=== PATIENT | male | born 1940 | race Caucasian/White ===

== ENCOUNTER 2016-09-27 19:44 | Emergency (ER) | payer MEDICARE ==
[2016-09-27 21:03] LABS: Basophils # (A) 0.1 k/uL (0-0.2); Basophils % (A) 1 %; CH 29.7; CHCM 35.3; Eosinophils # (A) 0.6 k/uL (0-0.7); Eosinophils % (A) 11 %; HDW 3.04; HGB 13.3 gm/dL (13.0-17.5); Luc # (Auto) 0.19; Luc % (Auto) 3; Lymphocytes # (A) 0.9 k/uL (1.0-4.8); Lymphocytes % (A) 16 %; MCH 29.7 pg (25.0-35.0); MCHC 35.1 g/dL (31.0-37.0); MCV 84.7 fL (80.0-100.0); Mean Platelet Volume 6.5; Monocytes # (A) 0.5 k/uL (0-1.0); Monocytes % (A) 8 %; Neutrophils # (A) 3.4 k/uL (1.3-7.7); Neutrophils % (A) 61 %; RBC 4.48 m/uL (4.30-5.90); RDW 12.7 % (11.5-15.5); WBC 5.6 k/uL (3.8-10.6); WBC (Perox) 5.49
[2016-09-27] MEDS ORDERED: NAFCILLIN 2 GM in SODIUM CHLORIDE 0.9% 100 ML IVPB STA (21:04)
--- NOTE | 2016-09-27 21:09 | ED ---
Extremity Problem HPI - General Chief complaint: Extremity Problem,Nontraumatic Stated complaint: leg swelling Time Seen by Provider: 09/27/16 20:31 Source: patient Mode of arrival: ambulatory Limitations: no limitations - History of Present Illness Initial comments: This patient is a 76-year-old man who presents to be evaluated for some increasing swelling and redness to both of his legs. The patient states that he believes it may be related to scratching his legs. This is been gradually increasing over nearly one week. The patient is not having pain to the extremities and he has not noted any systemic symptoms. He denies fever or chills, dyspnea, diaphoresis, lightheadedness or syncope. MD Complaint: extremity swelling Onset/Timin -: week(s) Location: bilateral lower extremity History of Same: No Consistency: constant Improves with: nothing Worsens with: nothing - Related Data Previous Rx's Medication Instructions Recorded Cephalexin [Keflex] 500 mg PO Q6HR #28 cap 09/27/16 Sulfamethox-Tmp 800-160Mg [Bactrim 2 each PO Q12HR #28 tab 09/27/16 Ds] Allergies Allergy/AdvReac Type Severity Reaction Status Date / Time No Known Allergies Allergy Verified 09/27/16 20:46 Review of Systems ROS Statement: Those systems with pertinent positive or pertinent negative responses have been documented in the HPI. ROS Other: All systems not noted in ROS Statement are negative. Constitutional: Denies: fever, chills, weakness Respiratory: Denies: cough, dyspnea Cardiovascular: Reports: as per HPI, edema. Denies: chest pain, palpitations, orthopnea, syncope Gastrointestinal: Denies: abdominal pain, vomiting, diarrhea Genitourinary: Denies: dysuria Musculoskeletal: Denies: back pain Skin: Reports: as per HPI, rash, change in color, pruritus. Denies: lesions Neurological: Denies: headache, weakness, numbness Past Medical History Past Medical History: No Reported History History of Any Multi-Drug Resistant Organisms: None Reported Past Surgical History: Hernia Repair Past Psychological History: No Psychological Hx Reported Smoking Status: Never smoker Past Alcohol Use History: None Reported Past Drug Use History: None Reported General Exam Limitations: no limitations General appearance: alert, in no apparent distress Head exam: Present: atraumatic, normocephalic Eye exam: Present: normal appearance. Absent: scleral icterus, conjunctival injection Respiratory exam: Present: normal lung sounds bilaterally. Absent: respiratory distress, wheezes, rales, rhonchi, stridor Cardiovascular Exam: Present: regular rate, normal rhythm, normal heart sounds. Absent: systolic murmur, diastolic murmur, rubs, gallop GI/Abdominal exam: Present: soft. Absent: distended, tenderness, guarding, rebound, mass Extremities exam: Present: normal capillary refill, pedal edema (There is a trace of pretibial edema bilaterally). Absent: tenderness, calf tenderness Back exam: Absent: CVA tenderness (R), CVA tenderness (L) Skin exam: Present: warm, dry, intact, erythema, abrasion, other (Patient has moderate amount of pretibial erythema and warmth consistent with early cellulitis. It is affecting the pretibial area is not circumferential). Absent : urticaria, vesicles, petechiae, pallor, mottled Course Vital Signs 09/27/16 19:53 Temperature 98.3 F Pulse Rate 74 Respiratory 20 Rate Blood Pressure 140/77 O2 Sat by Pulse 97 Oximetry Medical Decision Making - Lab Data Result diagrams: 09/27/16 20:19 09/27/16 20:19 Lab Results 09/27/16 09/27/16 09/27/16 Range/Units 20:19 20:19 20:19 WBC 5.6 (3.8-10.6) k/uL RBC 4.48 (4.30-5.90) m/uL Hgb 13.3 (13.0-17.5) gm/dL Hct 38.0 L (39.0-53.0) % MCV 84.7 (80.0-100.0) fL MCH 29.7 (25.0-35.0) pg MCHC 35.1 (31.0-37.0) g/dL RDW 12.7 (11.5-15.5) % Plt Count 172 (150-450) k/uL Neutrophils % 61 % Lymphocytes % 16 % Monocytes % 8 % Eosinophils % 11 % Basophils % 1 % Neutrophils # 3.4 (1.3-7.7) k/uL Lymphocytes # 0.9 L (1.0-4.8) k/uL Monocytes # 0.5 (0-1.0) k/uL Eosinophils # 0.6 (0-0.7) k/uL Basophils # 0.1 (0-0.2) k/uL Sodium 142 (137-145) mmol/L Potassium 4.3 (3.5-5.1) mmol/L Chloride 105 (98-107) mmol/L Carbon Dioxide 29 (22-30) mmol/L Anion Gap 8 mmol/L BUN 19 (9-20) mg/dL Creatinine 1.00 (0.66-1.25) mg/dL Est GFR (MDRD) Af Amer >60 (>60 ml/min/1.73 sqM) Est GFR (MDRD) Non-Af >60 (>60 ml/min/1.73 sqM) Glucose 106 H (74-99) mg/dL Plasma Lactic Acid Nomi 1.3 (0.7-2.0) mmol/L Calcium 8.8 (8.4-10.2) mg/dL Disposition Clinical Impression: Cellulitis Disposition: HOME SELF-CARE Condition: Good Instructions: Cellulitis (ED) Prescriptions: Cephalexin [Keflex] 500 mg PO Q6HR #28 cap Sulfamethox-Tmp 800-160Mg [Bactrim Ds] 2 each PO Q12HR #28 tab Referrals: Eduardo Monge MD [Primary Care Provider] - 1-2 days
[2016-09-27 21:11] LABS: Anion Gap 8 mmol/L; Blood Urea Nitrogen 19 mg/dL (9-20); Calcium 8.8 mg/dL (8.4-10.2); Carbon Dioxide 29 mmol/L (22-30); Chloride 105 mmol/L (98-107); Glucose 106 mg/dL (74-99); Non-African American GFR(MDRD) >60 (>60 ml/min/1.73 sqM); Potassium 4.3 mmol/L (3.5-5.1); Sodium 142 mmol/L (137-145)
[2016-09-27 22:41] VITALS: BP 184/86; PULSE 71; RESP 18; TEMP 98.2
== END 2016-09-27 22:56 | disposition home or self-care (01) ==
LOC: EC 19:44
DX: L03.116 Cellulitis of left lower limb (principal); L03.115 Cellulitis of right lower limb
CPT/HCPCS: 36415; 80048; 83605; 85025; 87040; 96365; 99283

== ENCOUNTER 2018-11-18 21:15 | Inpatient (IN) | payer MEDICARE ==
[2018-11-18] MEDS ORDERED: SODIUM CHLORIDE 0.9% 500 ML 500 ML IV ONE ×2 (21:54→23:23)
--- NOTE | 2018-11-18 22:22 | XR ---
EXAM: XR Chest, 2 Views CLINICAL HISTORY: ITS.REASON XR Reason: altered mental status TECHNIQUE: Frontal and lateral views of the chest. COMPARISON: No relevant prior studies available. FINDINGS: Lungs: Patchy airspace infiltrate within the right lower and middle lobes as well as lower aspect of the right upper lobe. Chronic obstructive pulmonary disease. Pleural space: Unremarkable. No pneumothorax. Heart: Mild cardiomegaly. Tortuous aorta. Bones/joints: No visualized acute osseous injury. Multilevel degenerative disc changes and osteopenia. IMPRESSION: 1. Patchy airspace disease in the right lung concerning for pneumonia.
--- NOTE | 2018-11-18 22:26 | CT ---
EXAM: CT Head Without Intravenous Contrast CLINICAL HISTORY: ITS.REASON CT Reason: altered mental status TECHNIQUE: Axial computed tomography images of the head/brain without intravenous contrast. CTDI is 49.27 mGy and DLP is 1202.4 mGy-cm. This CT exam was performed using one or more of the following dose reduction techniques: automated exposure control, adjustment of the mA and/or kV according to patient size, and/or use of iterative reconstruction technique. COMPARISON: No relevant prior studies available. FINDINGS: Brain: No visualized acute intracranial hemorrhage or mass effect. No definitive evidence for cortical edema at this time on CT. Early ischemic changes can be occult on CT. Global cortical involutional changes and white matter hypodensities are present likely related to chronic small vessel ischemia. Ventricles: Unremarkable. No ventriculomegaly. Bones/joints: Unremarkable. No acute fracture. Soft tissues: Unremarkable. Sinuses: Unremarkable as visualized. No acute sinusitis. Mastoid air cells: Unremarkable as visualized. No mastoid effusion. IMPRESSION: No acute intracranial CT findings. Chronic findings as above.
[2018-11-18 23:07] LABS: Basophils % (A) 1 %; Eosinophils % (A) 0 %; HCT 34.8 % (39.0-53.0); HGB 11.8 gm/dL (13.0-17.5); Lymphocytes # (A) 0.6 k/uL (1.0-4.8); Lymphocytes % (A) 7 %; MCHC 33.8 g/dL (31.0-37.0); MCV 85.8 fL (80.0-100.0); Mean Platelet Volume 7.3; Monocytes # (A) 0.5 k/uL (0-1.0); Monocytes % (A) 5 %; Neutrophils # (A) 7.4 k/uL (1.3-7.7); Neutrophils % (A) 85 %; Platelet Count 180 k/uL (150-450); RBC 4.06 m/uL (4.30-5.90); RDW 14.8 % (11.5-15.5); WBC 8.7 k/uL (3.8-10.6)
[2018-11-18 23:11] LABS: INR 1.1 (<1.2); Partial Thromboplastin Time 25.7 sec (22.0-30.0); Prothrombin Time 11.4 sec (9.0-12.0)
[2018-11-18 23:12] LABS: Albumin 3.8 g/dL (3.5-5.0); Calcium 9.2 mg/dL (8.4-10.2); Potassium 4.8 mmol/L (3.5-5.1); Total Protein 6.5 g/dL (6.3-8.2)
[2018-11-19 00:28] LABS: Appearance,Urine Clear (Clear); Bilirubin,Urine Negative (Negative); Blood,Urine Negative (Negative); Color,Urine Yellow; Glucose,Urine (UA) Negative (Negative); Hyaline Casts,Urine 57 /lpf (0-2); Ketones,Urine Negative (Negative); Leukocyte Esterase,Urine Negative (Negative); Mucus,Urine Rare /hpf; Nitrite,Urine Negative (Negative); Protein,Urine 1+ (Negative); RBC,Urine 1 /hpf (0-5); Specific Gravity,Urine 1.017 (1.001-1.035); Squamous Epithelial Cell,Urine <1 /hpf (0-4); Urobilinogen,Urine <2.0 mg/dL (<2.0); WBC,Urine 1 /hpf (0-5)
[2018-11-19 00:42] LABS: Amphetamine Screen,Urine Not Detected (NotDetected); Barbiturate Screen,Urine Not Detected (NotDetected); Benzodiazepines Screen,Urine Not Detected (NotDetected); Cocaine Screen,Urine Not Detected (NotDetected); Methadone Screen, Urine Not Detected (NotDetected); Opiate Screen,Urine Not Detected (NotDetected); Oxycodone Screen, Urine Not Detected (NotDetected); Phencyclidine Screen,Urine Not Detected (NotDetected); Tricyclic Antidepressant,Urine Not Detected (NotDetected); Urn Cannabinoid Scrn Not Detected (NotDetected)
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
[2018-11-19] MEDS ORDERED: AZITHROMYCIN 500 MG in SODIUM CHLORIDE 0.9% 250 ML IVPB STA (00:55)
[2018-11-19] MEDS ORDERED: NALOXONE 0.4 MG/ML 1 ML VIAL IV PRN (01:51)
[2018-11-19] MEDS: SODIUM CHLORIDE 0.9% 1,000 ML IV SCH ×2 (09:43→22:53)
[2018-11-19 10:36] VITALS: BMI 18.8
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
[2018-11-19] MEDS: MIDODRINE 5 MG TAB PO SCH (17:23)
[2018-11-19] MEDS: risperiDONE 0.25 MG TAB PO PRN (21:39)
[2018-11-19] MEDS ORDERED: HALOPERIDOL LACTATE 5 MG/ML 1 ML VIAL IM PRN (23:41)
[2018-11-20] MEDS ORDERED: AZITHROMYCIN 500 MG in SODIUM CHLORIDE 0.9% 250 ML IVPB SCH ×2
[2018-11-20] MEDS: ENOXAPARIN 40 MG/0.4 ML SYRINGE SQ SCH (08:01)
[2018-11-20] MEDS: ATORVASTATIN 20 MG TAB PO SCH (08:01)
[2018-11-20] MEDS: PANTOPRAZOLE 40 MG TABLET PO SCH (08:01)
[2018-11-20] MEDS: MIDODRINE 5 MG TAB PO SCH (08:01)
[2018-11-20] MEDS: ASPIRIN 81 MG PO SCH (08:02)
[2018-11-20 11:28] LABS: African American GFR (CKD) >90 (>60 ml/min/1.73 sqM); Anion Gap 11 mmol/L; Blood Urea Nitrogen 13 mg/dL (9-20); Calcium 9.4 mg/dL (8.4-10.2); Carbon Dioxide 23 mmol/L (22-30); Chloride 107 mmol/L (98-107); Glucose 77 mg/dL (74-99); Potassium 3.9 mmol/L (3.5-5.1); Sodium 141 mmol/L (137-145)
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
[2018-11-20] MEDS: SODIUM CHLORIDE 0.9% 1,000 ML IV SCH (20:00)
[2018-11-21] MEDS: AZITHROMYCIN 500 MG TAB PO SCH (06:18)
[2018-11-21] MEDS: ASPIRIN 81 MG PO SCH (08:08)
[2018-11-21] MEDS: PANTOPRAZOLE 40 MG TABLET PO SCH (08:08)
[2018-11-21] MEDS: ATORVASTATIN 20 MG TAB PO SCH (08:08)
[2018-11-21] MEDS: ENOXAPARIN 40 MG/0.4 ML SYRINGE SQ SCH (08:08)
[2018-11-21 08:54] LABS: African American GFR (CKD) >90 (>60 ml/min/1.73 sqM); Anion Gap 10 mmol/L; Blood Urea Nitrogen 13 mg/dL (9-20); Calcium 8.6 mg/dL (8.4-10.2); Carbon Dioxide 20 mmol/L (22-30); Chloride 111 mmol/L (98-107); Glucose 80 mg/dL (74-99); Potassium 3.5 mmol/L (3.5-5.1); Sodium 141 mmol/L (137-145)
[2018-11-21] MEDS: SODIUM CHLORIDE 0.9% 1,000 ML IV SCH (15:02)
[2018-11-21] MEDS: risperiDONE 0.25 MG TAB PO PRN (19:57)
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
[2018-11-21] MEDS ORDERED: LORazepam 2 MG/ML INJ IV ONE (20:53)
[2018-11-22] MEDS: AZITHROMYCIN 500 MG TAB PO SCH (05:47)
[2018-11-22] MEDS: ENOXAPARIN 40 MG/0.4 ML SYRINGE SQ SCH (07:38)
[2018-11-22] MEDS: PANTOPRAZOLE 40 MG TABLET PO SCH (07:38)
[2018-11-22] MEDS: ATORVASTATIN 20 MG TAB PO SCH (07:38)
[2018-11-22] MEDS: ASPIRIN 81 MG PO SCH (07:39)
[2018-11-22 09:32] LABS: Basophils % (A) 0 %; Eosinophils # (A) 0.2 k/uL (0-0.7); Eosinophils % (A) 3 %; HCT 35.4 % (39.0-53.0); HGB 11.7 gm/dL (13.0-17.5); Lymphocytes # (A) 1.3 k/uL (1.0-4.8); Lymphocytes % (A) 21 %; MCH 28.6 pg (25.0-35.0); MCHC 33.2 g/dL (31.0-37.0); MCV 86.3 fL (80.0-100.0); Mean Platelet Volume 6.7; Monocytes # (A) 0.5 k/uL (0-1.0); Monocytes % (A) 8 %; Neutrophils % (A) 64 %; Platelet Count 188 k/uL (150-450); RDW 14.2 % (11.5-15.5); WBC 6.2 k/uL (3.8-10.6)
[2018-11-22 09:54] LABS: African American GFR (CKD) >90 (>60 ml/min/1.73 sqM); Anion Gap 11 mmol/L; Blood Urea Nitrogen 16 mg/dL (9-20); Calcium 9.2 mg/dL (8.4-10.2); Carbon Dioxide 22 mmol/L (22-30); Chloride 106 mmol/L (98-107); Glucose 83 mg/dL (74-99); Sodium 139 mmol/L (137-145)
[2018-11-22] MEDS: SODIUM CHLORIDE 0.9% 1,000 ML IV SCH (11:20)
[2018-11-22] MEDS: LISINOPRIL 10 MG TAB PO SCH (11:39)
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
[2018-11-22] MEDS: LEVOFLOXACIN 500 MG TAB PO SCH (18:15)
[2018-11-23] MEDS: SODIUM CHLORIDE 0.9% 1,000 ML IV SCH (07:14)
[2018-11-23] MEDS: ATORVASTATIN 20 MG TAB PO SCH (08:13)
[2018-11-23] MEDS: ASPIRIN 81 MG PO SCH (08:13)
[2018-11-23] MEDS: PANTOPRAZOLE 40 MG TABLET PO SCH (08:13)
[2018-11-23] MEDS: ENOXAPARIN 40 MG/0.4 ML SYRINGE SQ SCH (08:13)
[2018-11-23] MEDS: LISINOPRIL 10 MG TAB PO SCH ×2 (08:13→21:48)
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
[2018-11-23] MEDS: LEVOFLOXACIN 500 MG TAB PO SCH (17:07)
[2018-11-23 17:39] VITALS: RESP 16
[2018-11-24] MEDS: SODIUM CHLORIDE 0.9% 1,000 ML IV SCH (01:27)
[2018-11-24 06:12] VITALS: BP 149/87; PULSE 65; TEMP 98.3
[2018-11-24] MEDS: PANTOPRAZOLE 40 MG TABLET PO SCH (07:32)
[2018-11-24] MEDS: ASPIRIN 81 MG PO SCH (07:32)
[2018-11-24] MEDS: ATORVASTATIN 20 MG TAB PO SCH (07:32)
[2018-11-24] MEDS: LISINOPRIL 10 MG TAB PO SCH (07:32)
[2018-11-24] MEDS: ENOXAPARIN 40 MG/0.4 ML SYRINGE SQ SCH (07:32)
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
== END 2018-11-24 15:40 | DRG 193 ==
LOC: EC 21:15 → 4MS4W 11-19 02:55
PROVIDERS: ADMIT Internal Medicine; ATTEND Internal Medicine
DX: J18.9 Pneumonia, unspecified organism (principal); G93.41 Metabolic encephalopathy; N17.9 Acute kidney failure, unspecified; I95.89 Other hypotension; E86.0 Dehydration; F03.90 Unspecified dementia, unspecified severity, without behavioral disturbance, psychotic disturbance, mood disturbance, and anxiety; R15.9 Full incontinence of feces; N18.2 Chronic kidney disease, stage 2 (mild); I12.9 Hypertensive chronic kidney disease with stage 1 through stage 4 chronic kidney disease, or unspecified chronic kidney disease; E80.4 Gilbert syndrome; E78.5 Hyperlipidemia, unspecified; R32 Unspecified urinary incontinence; E78.00 Pure hypercholesterolemia, unspecified; Z79.82 Long term (current) use of aspirin; Z79.818 Long term (current) use of other agents affecting estrogen receptors and estrogen levels; Z79.899 Other long term (current) drug therapy; Z87.891 Personal history of nicotine dependence
CPT/HCPCS: 36415; 70450; 71046; 80048; 80053; 80306; 81001; 82375; 82607; 84443; 84484; 85025; 85610; 85730; 93005; 96361; 96365; 96366; 96375; 99285

== ENCOUNTER → 2018-12-17 | Outpatient (CLI) | payer MEDICARE ==
--- NOTE | 2018-12-17 22:38 | MR ---
EXAMINATION TYPE: MR brain wo/w con DATE OF EXAM: 12/17/2018 COMPARISON: CT brain from November 18, 2018. HISTORY: Mental Status Changes over the last 3-4 months. Last month is biggest decline. Dizziness, Co nfusion, does not follow commands. TECHNIQUE: Multiplanar, multisequence images of the brain and brainstem is performed without and with IV contras t, utilizing 7.5 mL intravenous Gadavist . FINDINGS: Diffusion weighted images demonstrate no evidence of a recent infarct or other diffusion ab normality. There is no worrisome extra-axial fluid collection. There is diffuse ventricular and sulc al prominence redemonstrated. There are focal and confluent areas of T2 hyperintensity seen throughou t the deep and periventricular white matter. Midline structures demonstrate normal morphology. The craniocervical junction appears within normal limits. Post contrast images demonstrate no abnormal enhancement. The dural venous sinuses appear pa tent. The visualized sinuses are clear and the globes are intact. IMPRESSION: There is [id number] diffuse cerebral atrophy and advanced chronic small vessel isch emic change. No recent infarct. No suspicious enhancement.
== END | disposition home or self-care (01) ==
LOC: RADMRIMAIN 16:12
PROVIDERS: ATTEND Nurse Practitioner Acute Care
DX: G31.9 Degenerative disease of nervous system, unspecified (principal); I67.82 Cerebral ischemia
CPT/HCPCS: 70553; A9585

== ENCOUNTER 2019-01-13 23:11 | Inpatient (IN) | payer MEDICARE, OTHER ==
[2019-01-13] MEDS ORDERED: SODIUM CHLORIDE 0.9% 1,000 ML IV STA (23:44)
--- NOTE | 2019-01-14 00:32 | ED ---
General Adult HPI - General Chief complaint: GI Bleed Stated complaint: Altered, coughing up blood Time Seen by Provider: 01/13/19 23:43 Source: patient, family Mode of arrival: ambulatory Limitations: no limitations - History of Present Illness Initial comments: Marco A is a 78-year-old gentleman with advanced dementia who is usually alert and oriented to self only. Patient was [place]. Patient is brought to the emergency department today by EMS for evaluation of hemoptysis. [facility] yesterday he had not episode of being unresponsive, he did not eat or drink throughout the day and was given IV fluids due to concerns for developing dehydration. Today they noticed he was coughing and coughed up some blood at which time they transported him to the ER for evaluation. Patient is not on any anti-or urinary antiplatelet medication according to his family. Family reports they visit him only about once a week and that he is minimally verbal. However they would like him to be full code. - Related Data Home Medications Medication Instructions Recorded Confirmed Aspirin [[place] Aspirin EC] 81 mg PO DAILY@1700 11/18/18 01/13/19 Atorvastatin [Lipitor] 20 mg PO DAILY@1700 11/18/18 01/13/19 Ergocalciferol [Vitamin D2 50,000 unit PO Q14D 11/18/18 01/13/19 (DRISDOL)] Acetaminophen [Tylenol 8 Hour] 650 mg PO Q4H PRN 01/13/19 01/13/19 Bisacodyl [Dulcolax] 10 mg RECTAL DAILY PRN 01/13/19 01/13/19 LORazepam [Ativan] 1 mg PO BID PRN 01/13/19 01/13/19 Lisinopril [Zestril] 10 mg PO BID@0800,1700 01/13/19 01/13/19 Magnesium Hydroxide [Milk of 7,200 mg PO DAILY PRN 01/13/19 01/13/19 Magnesia Concentrate] Na Phos,M-B/Na Phos,Di-Ba [Fleet 133 ml RECTAL DAILY PRN 01/13/19 01/13/19 Adult] QUEtiapine [SEROquel] 50 mg PO DAILY@0800 01/13/19 01/13/19 QUEtiapine [SEROquel] 100 mg PO DAILY@1400 01/13/19 01/13/19 QUEtiapine [SEROquel] 200 mg PO DAILY@2100 01/13/19 01/13/19 Allergies Allergy/AdvReac Type Severity Reaction Status Date / Time No Known Allergies Allergy Verified 01/13/19 23:23 Review of Systems ROS Statement: Those systems with pertinent positive or pertinent negative responses have been documented in the HPI. ROS Other: All systems not noted in ROS Statement are negative. Limitations: ROS unobtainable due to patients medical condition (Advanced dementia, nonverbal) Past Medical History Past Medical History: No Reported History, Hyperlipidemia Additional Past Medical History / Comment(s): hypotension History of Any Multi-Drug Resistant Organisms: None Reported Past Surgical History: Hernia Repair Past Anesthesia/Blood Transfusion Reactions: No Reported Reaction Past Psychological History: No Psychological Hx Reported Smoking Status: Former smoker Past Alcohol Use History: None Reported Past Drug Use History: None Reported - Past Family History Father Additional Family Medical History / Comment(s): Patient does not know any history on his parents. Patient has 2 sisters and patient does not know mother's history. Patient has one nephew. Patient does not have any children. General Exam - General Exam Comments Initial Comments: Physical Exam GENERAL: Chronically ill-appearing Nonverbal but awake HENT: Normocephalic, Atraumatic. Noted to have some dried bloody sputum on right-sided mouth EYES: PERRL PULMONARY: Crackles at bases CARDIOVASCULAR: RRR Systolic murmur ABDOMEN: No distention, no apparent pain with palpation SKIN: Skin is clear with no lesions or rashes and otherwise unremarkable. : Deferred NEUROLOGIC: Awake, nonverbal MUSCULOSKELETAL: Generalized atrophy PSYCHIATRIC: Unable to assess Limitations: no limitations Course Vital Signs 01/13/19 01/14/19 01/14/19 23:26 00:34 03:09 Temperature 97 F L Pulse Rate 67 Respiratory 16 16 Rate Blood Pressure 138/65 132/87 O2 Sat by Pulse 97 Oximetry EKG Findings - EKG Comments: EKG Findings:: EKG was obtained at 2343, rate is 67, rhythm is sinus, there is normal axis, normal intervals, ID 1:30, QRS 66, QTC is 429 there are no acute ST elevations or depressions there is no evidence of acute infarction. Medical Decision Making - Medical Decision Making The patient was seen and evaluated upon arrival in the emergency department, this is a chronically ill nonverbal 78-year-old gentleman who is had decrease in activity and was noted to develop hemoptysis today Labs and imaging were ordered chest x-ray is concerning for possible pneumonia Considering that the patient [facility] a [facility] will treat for healthcare associated pneumonia Labs the multiple abnormalities, anemia seems to be at baseline, hypernatremia was noted yesterday and seems to be only minimally improving today, continued IV fluids were ordered Patient care was discussed with Dr. Payne who agrees with plan for admission and consult pulmonology Patient remained hemodynamically stable throughout his stay in the emergency department. - Lab Data Result diagrams: 01/14/19 00:17 01/14/19 00:17 Lab Results 01/14/19 01/14/19 01/14/19 Range/Units 00:17 00:17 00:17 WBC 7.2 (3.8-10.6) k/uL RBC 3.61 L (4.30-5.90) m/uL Hgb 10.0 L (13.0-17.5) gm/dL Hct 31.0 L (39.0-53.0) % MCV 85.9 (80.0-100.0) fL MCH 27.8 (25.0-35.0) pg MCHC 32.3 (31.0-37.0) g/dL RDW 14.6 (11.5-15.5) % Plt Count 174 (150-450) k/uL Neutrophils % 79 % Lymphocytes % 10 % Monocytes % 4 % Eosinophils % 5 % Basophils % 0 % Neutrophils # 5.7 (1.3-7.7) k/uL Lymphocytes # 0.7 L (1.0-4.8) k/uL Monocytes # 0.3 (0-1.0) k/uL Eosinophils # 0.4 (0-0.7) k/uL Basophils # 0.0 (0-0.2) k/uL Poikilocytosis Slight PT (9.0-12.0) sec INR (<1.2) APTT (22.0-30.0) sec Sodium 148 H (137-145) mmol/L Potassium 4.1 (3.5-5.1) mmol/L Chloride 117 H (98-107) mmol/L Carbon Dioxide 25 (22-30) mmol/L Anion Gap 6 mmol/L BUN 33 H (9-20) mg/dL Creatinine 1.32 H (0.66-1.25) mg/dL Est GFR (CKD-EPI)AfAm 59 (>60 ml/min/1.73 sqM) Est GFR (CKD-EPI)NonAf 51 (>60 ml/min/1.73 sqM) Glucose 102 H (74-99) mg/dL Plasma Lactic Acid Nomi 1.2 (0.7-2.0) mmol/L Calcium 9.0 (8.4-10.2) mg/dL Magnesium 1.9 (1.6-2.3) mg/dL Total Bilirubin 1.2 (0.2-1.3) mg/dL AST 29 (17-59) U/L ALT 23 (21-72) U/L Alkaline Phosphatase 65 (38-126) U/L Troponin I (0.000-0.034) ng/mL Total Protein 6.5 (6.3-8.2) g/dL Albumin 3.2 L (3.5-5.0) g/dL Blood Type Blood Type Confirm Blood Type Recheck Antibody Screen Spec Expiration Date 01/14/19 01/14/19 01/14/19 Range/Units 00:17 00:17 00:18 WBC (3.8-10.6) k/uL RBC (4.30-5.90) m/uL Hgb (13.0-17.5) gm/dL Hct (39.0-53.0) % MCV (80.0-100.0) fL MCH (25.0-35.0) pg MCHC (31.0-37.0) g/dL RDW (11.5-15.5) % Plt Count (150-450) k/uL Neutrophils % % Lymphocytes % % Monocytes % % Eosinophils % % Basophils % % Neutrophils # (1.3-7.7) k/uL Lymphocytes # (1.0-4.8) k/uL Monocytes # (0-1.0) k/uL Eosinophils # (0-0.7) k/uL Basophils # (0-0.2) k/uL Poikilocytosis PT 10.5 (9.0-12.0) sec INR 1.0 (<1.2) APTT 23.3 (22.0-30.0) sec Sodium (137-145) mmol/L Potassium (3.5-5.1) mmol/L Chloride (98-107) mmol/L Carbon Dioxide (22-30) mmol/L Anion Gap mmol/L BUN (9-20) mg/dL Creatinine (0.66-1.25) mg/dL Est GFR (CKD-EPI)AfAm (>60 ml/min/1.73 sqM) Est GFR (CKD-EPI)NonAf (>60 ml/min/1.73 sqM) Glucose (74-99) mg/dL Plasma Lactic Acid Nomi (0.7-2.0) mmol/L Calcium (8.4-10.2) mg/dL Magnesium (1.6-2.3) mg/dL Total Bilirubin (0.2-1.3) mg/dL AST (17-59) U/L ALT (21-72) U/L Alkaline Phosphatase (38-126) U/L Troponin I <0.012 (0.000-0.034) ng/mL Total Protein (6.3-8.2) g/dL Albumin (3.5-5.0) g/dL Blood Type O Positive Blood Type Confirm Blood Type Recheck CABO Indicated Antibody Screen NEGATIVE Spec Expiration Date 01/17/2019231701/14/19 Range/Units 00:27 WBC (3.8-10.6) k/uL RBC (4.30-5.90) m/uL Hgb (13.0-17.5) gm/dL Hct (39.0-53.0) % MCV (80.0-100.0) fL MCH (25.0-35.0) pg MCHC (31.0-37.0) g/dL RDW (11.5-15.5) % Plt Count (150-450) k/uL Neutrophils % % Lymphocytes % % Monocytes % % Eosinophils % % Basophils % % Neutrophils # (1.3-7.7) k/uL Lymphocytes # (1.0-4.8) k/uL Monocytes # (0-1.0) k/uL Eosinophils # (0-0.7) k/uL Basophils # (0-0.2) k/uL Poikilocytosis PT (9.0-12.0) sec INR (<1.2) APTT (22.0-30.0) sec Sodium (137-145) mmol/L Potassium (3.5-5.1) mmol/L Chloride (98-107) mmol/L Carbon Dioxide (22-30) mmol/L Anion Gap mmol/L BUN (9-20) mg/dL Creatinine (0.66-1.25) mg/dL Est GFR (CKD-EPI)AfAm (>60 ml/min/1.73 sqM) Est GFR (CKD-EPI)NonAf (>60 ml/min/1.73 sqM) Glucose (74-99) mg/dL Plasma Lactic Acid Nomi (0.7-2.0) mmol/L Calcium (8.4-10.2) mg/dL Magnesium (1.6-2.3) mg/dL Total Bilirubin (0.2-1.3) mg/dL AST (17-59) U/L ALT (21-72) U/L Alkaline Phosphatase (38-126) U/L Troponin I (0.000-0.034) ng/mL Total Protein (6.3-8.2) g/dL Albumin (3.5-5.0) g/dL Blood Type Blood Type Confirm O Positive Blood Type Recheck Antibody Screen Spec Expiration Date Disposition Clinical Impression: Pneumonia, Hemoptysis, Advanced dementia, Hypernatremia, Dehydration Disposition: ADMITTED IP TO THIS [facility] Condition: Stable Is patient prescribed a controlled substance at d/c from ED?: No
[2019-01-14 00:47] LABS: Basophils % (A) 0 %; Eosinophils # (A) 0.4 k/uL (0-0.7); Eosinophils % (A) 5 %; Lymphocytes # (A) 0.7 k/uL (1.0-4.8); Lymphocytes % (A) 10 %; MCH 27.8 pg (25.0-35.0); MCHC 32.3 g/dL (31.0-37.0); MCV 85.9 fL (80.0-100.0); Mean Platelet Volume 6.8; Monocytes # (A) 0.3 k/uL (0-1.0); Monocytes % (A) 4 %; Neutrophils # (A) 5.7 k/uL (1.3-7.7); Neutrophils % (A) 79 %; Platelet Count 174 k/uL (150-450); Poikilocytosis Slight; RBC 3.61 m/uL (4.30-5.90); RDW 14.6 % (11.5-15.5); WBC 7.2 k/uL (3.8-10.6)
--- NOTE | 2019-01-14 00:51 | XR ---
EXAM: XR Chest, 2 Views CLINICAL HISTORY: Pain TECHNIQUE: Frontal and lateral views of the chest. COMPARISON: Chest x-ray dated 11/18/2018 FINDINGS: Lungs: Opacity within the right lower lung which may represent recurrent pneumonia. Pleural space: Unremarkable. No pneumothorax. Heart: Unremarkable. No cardiomegaly. Mediastinum: Unremarkable. Bones/joints: Unremarkable. IMPRESSION: Opacity within the right lower lung which may represent recurrent pneumonia. Consider short interval follow-up after appropriate treatment to exclude other etiologies such as neoplasm.
[2019-01-14 00:54] LABS: Partial Thromboplastin Time 23.3 sec (22.0-30.0); Prothrombin Time 10.5 sec (9.0-12.0)
[2019-01-14 01:20] LABS: Albumin 3.2 g/dL (3.5-5.0); Magnesium 1.9 mg/dL (1.6-2.3); Potassium 4.1 mmol/L (3.5-5.1); Total Bilirubin 1.2 mg/dL (0.2-1.3); Total Protein 6.5 g/dL (6.3-8.2)
[2019-01-14] MEDS ORDERED: NALOXONE 0.4 MG/ML 1 ML VIAL IV PRN (03:09)
[2019-01-14] MEDS ORDERED: VANCOMYCIN IV PER PHARMACY 1 EACH MISC MISCELLANE PRN (03:11)
[2019-01-14] MEDS ORDERED: LEVOFLOXACIN 750MG-D5W PMX 750 MG in DEXTROSE/WATER 1 150ML.BAG IVPB STA (03:11)
[2019-01-14] MEDS ORDERED: SODIUM CHLORIDE 0.9% 1,000 ML IV SCH (03:15)
[2019-01-14] MEDS ORDERED: VANCOMYCIN 1,000 MG in SODIUM CHLORIDE 0.9% 250 ML IVPB SCH ×2 (04:00→06:00)
[2019-01-14] MEDS: PIPERACILLIN-TAZOBACTAM 3.375 GM in SODIUM CHLORIDE 0.9% 100 ML IVPB SCH ×3 (05:12→20:08)
[2019-01-14] MEDS ORDERED: MAGNESIUM HYDROXIDE 2,400 MG/10 ML CUP PO PRN (09:05)
[2019-01-14] MEDS ORDERED: BISACODYL 10 MG SUPP RECTAL PRN (09:05)
[2019-01-14] MEDS ORDERED: ACETAMINOPHEN TAB 325 MG TAB PO PRN (09:05)
[2019-01-14 10:00] LABS: HCT 27.4 % (39.0-53.0); HGB 9.2 gm/dL (13.0-17.5); Hypochromasia Slight; MCH 28.7 pg (25.0-35.0); MCHC 33.5 g/dL (31.0-37.0); MCV 85.7 fL (80.0-100.0); Mean Platelet Volume 7.3; Platelet Count 169 k/uL (150-450); Poikilocytosis Slight; RDW 14.8 % (11.5-15.5); WBC 6.4 k/uL (3.8-10.6)
[2019-01-14 10:30] LABS: Calcium 8.7 mg/dL (8.4-10.2); Potassium 3.8 mmol/L (3.5-5.1)
--- NOTE | 2019-01-14 12:42 | P.HPIM ---
History of Present Illness H&P Date: 01/14/19 Chief Complaint: Hemoptysis. This is a 78-year-old male one of Dr. Monge with a previous medical history significant for hypertension and hypertensive cardiovascular disease, hyperlipidemia, remote history of "tobacco use and dependence, vascular dementia, patient was recently hospitalized at [facility] back in 11/09/2018 after he was found to have a right lower lobe pneumonia was treated with IV antibiotic and he had a computed tomography scan of the brain at that time was negative. Was sent to [facility] for therapy patient while he was at [facility] he became less responsive and he was hypernatremic and at that time on IV fluid was started about 48 hours ago when he was supposed to have repeat her blood work yesterday however he continued to have poor oral intake with significant encephalopathy and generalized weakness not able to do much and the patient started to cough up some blood so the decision was made to send him to the ER for evaluation patient did have a chest x-ray that showed right lower lobe infiltrate that was present back in October 2018 patient the possibilities of possible mass, patient was started on IV antibiotic as well as IV fluid and he was admitted to the hospital for pulmonary evaluation. Review of Systems ROS unobtainable: due to mental status (Not able to obtain review of systems due to mental status.) Past Medical History Past Medical History: No Reported History, COPD, Dementia, Hyperlipidemia, Hypertension, Osteoarthritis (OA) Additional Past Medical History / Comment(s): hypotension History of Any Multi-Drug Resistant Organisms: None Reported Past Surgical History: Hernia Repair Past Anesthesia/Blood Transfusion Reactions: No Reported Reaction Past Psychological History: No Psychological Hx Reported Smoking Status: Former smoker Past Alcohol Use History: None Reported Past Drug Use History: None Reported - Past Family History Father Additional Family Medical History / Comment(s): Patient does not know any history on his parents. Patient has 2 sisters and patient does not know mother's history. Patient has one nephew. Patient does not have any children. Medications and Allergies Home Medications Medication Instructions Recorded Confirmed Type Aspirin [[place] Aspirin EC] 81 mg PO DAILY@1700 11/18/18 01/13/19 History Atorvastatin [Lipitor] 20 mg PO DAILY@1700 11/18/18 01/13/19 History Ergocalciferol [Vitamin D2 50,000 unit PO Q14D 11/18/18 01/13/19 History (DRISDOL)] Acetaminophen [Tylenol 8 Hour] 650 mg PO Q4H PRN 01/13/19 01/13/19 History Bisacodyl [Dulcolax] 10 mg RECTAL DAILY PRN 01/13/19 01/13/19 History LORazepam [Ativan] 1 mg PO BID PRN 01/13/19 01/13/19 History Lisinopril [Zestril] 10 mg PO BID@0800,1700 01/13/19 01/13/19 History Magnesium Hydroxide [Milk of 7,200 mg PO DAILY PRN 01/13/19 01/13/19 History Magnesia Concentrate] Na Phos,M-B/Na Phos,Di-Ba [Fleet 133 ml RECTAL DAILY PRN 01/13/19 01/13/19 History Adult] QUEtiapine [SEROquel] 50 mg PO DAILY@0800 01/13/19 01/13/19 History QUEtiapine [SEROquel] 100 mg PO DAILY@1400 01/13/19 01/13/19 History QUEtiapine [SEROquel] 200 mg PO DAILY@2100 01/13/19 01/13/19 History Allergies Allergy/AdvReac Type Severity Reaction Status Date / Time No Known Allergies Allergy Verified 01/13/19 23:23 Physical Exam Vitals: Vital Signs Temp Pulse Pulse Resp BP BP Pulse Ox 01/14/19 07:00 99.2 F 111 H 16 121/77 96 01/14/19 04:12 97.7 F 67 19 151/81 98 01/14/19 03:09 132/87 01/14/19 00:34 16 01/13/19 23:26 97 F L 67 16 138/65 97 Intake and Output 01/13/19 01/14/19 01/14/19 22:59 06:59 14:59 Other: Voiding Method Diaper Incontinent Weight 63.049 kg - Constitutional General appearance: mild distress, thin - EENT Eyes: anicteric sclerae, EOMI, PERRLA, no ptosis, no scleral icterus, normal appearance ENT: hard of hearing, NA/AT, pharyngeal erythema, no thrush Ears: bilateral: normal - Neck Neck: no lymphadenopathy, normal ROM, no rigidity, no stridor, no thyromegaly Carotids: bilateral: upstroke normal Thyroid: bilateral: normal size - Respiratory Respiratory: bilateral: diminished, rhonchi, wheezing, prolonged expiration, negative: dullness, rales, prolonged inspiration - Cardiovascular Rhythm: regular Heart sounds: normal: S1, S2 Abnormal Heart Sounds: systolic murmur, no S3 Gallop, no S4 Gallop, no click - Gastrointestinal General gastrointestinal: normal bowel sounds, soft, no splenomegaly, no tenderness, no umbilical hernia, no ventral hernia - Integumentary Integumentary: decreased turgor - Neurologic Neurologic: CNII-XII intact - Musculoskeletal Musculoskeletal: generalized weakness - Psychiatric Psychiatric: no A&O x's 3, no appropriate affect, no intact judgment & insight Results CBC & Chem 7: 01/14/19 09:42 01/14/19 09:42 Labs: Abnormal Lab Results - Last 24 Hours (Table) 01/14/19 01/14/19 01/14/19 Range/Units 00:17 00:17 09:42 RBC 3.61 L 3.20 L (4.30-5.90) m/uL Hgb 10.0 L 9.2 L (13.0-17.5) gm/dL Hct 31.0 L 27.4 L (39.0-53.0) % Lymphocytes # 0.7 L (1.0-4.8) k/uL Sodium 148 H (137-145) mmol/L Chloride 117 H (98-107) mmol/L BUN 33 H (9-20) mg/dL Creatinine 1.32 H (0.66-1.25) mg/dL Glucose 102 H (74-99) mg/dL Albumin 3.2 L (3.5-5.0) g/dL 01/14/19 Range/Units 09:42 RBC (4.30-5.90) m/uL Hgb (13.0-17.5) gm/dL Hct (39.0-53.0) % Lymphocytes # (1.0-4.8) k/uL Sodium 149 H (137-145) mmol/L Chloride 118 H (98-107) mmol/L BUN 28 H (9-20) mg/dL Creatinine (0.66-1.25) mg/dL Glucose (74-99) mg/dL Albumin (3.5-5.0) g/dL Thrombosis Risk Factor Assmnt - DVT/VTE Prophylaxis DVT/VTE Prophylaxis: Pharmacologic Prophylaxis ordered, Mechanical Prophylaxis ordered Assessment and Plan Assessment: Assessment and plan: 1. Right lower lobe pneumonia likely gram-negative pneumonia with possible underlying mass in the right lower lobe. Start the patient on Levaquin 750 mg IV piggyback every 24 hours as well as Zosyn 3.375 g IV piggyback every 6 hours, DuoNeb 3 mL nebulization 4 times every day, oxygen support, pulmonary consultation, patient would need to have a computed tomography scan of the chest with contrast in the next 24 hours after his creatinine improves, we will continue IV fluid resuscitation the form of D5 half-normal saline at 100 mL an hour. 2. Metabolic encephalopathy due to hypernatremia with minimal dehydration. Continue IV fluid repeat CMP tomorrow morning. 3. Hemoptysis likely related to the right lower lobe pneumonia with the possibility of underlying right lower lobe mass. Pulmonary consultation for further evaluation. 4. Hypertension and hypertensive cardiovascular disease. Continue lisinopril 10 mg orally twice every day. 5. Hyperlipidemia. Continue Lipitor 20 mg orally once every day. 6. Dementia with behavioral disturbances. Continue Seroquel 50 mg in the morning 100 mg at noon and 200 mg at bedtime. 7. Acute blood loss anemia due to hemoptysis and chronic anemia. Further ev aluation is in progress. 8. DVT prophylaxis. Continue with heparin 5000 units subcutaneously every 12 hours. 9. GI prophylaxis. Continue patient on Protonix 40 mg orally once every day. 10. Admit to inpatient. Estimated length of stay 2 midnights. 11. Patient is full code.
--- NOTE | 2019-01-14 14:24 | P.CNPUL ---
History of Present Illness Consult date: 01/14/19 Requesting physician: Reshma Payne Chief complaint: Hemoptysis History of present illness: This is 78-year-old white male patient of Dr. Monge, with history of advanced dementia, a resident of [facility] and rehab, who was brought into the emergency department for evaluation of hemoptysis, decreased responsiveness y esterday, poor oral intake and concern of dehydration. Patient was noted to be coughing up some blood in his sputum, currently not on any anticoagulation, or antiplatelet therapy. Patient is minimally verbal, and is not able to provide much history. Past medical history is that of hyperlipidemia, former smoker, previous episode of pneumonia involving the right lung, chronic kidney disease stage II, hypertension. Chest x-ray was completed in the emergency department showing opacity within the right lower lung representing recurrent pneumonia. EKG showed normal sinus rhythm with nonspecific ST and T-wave abnormality. Labs was negative for any leukocytosis, white blood cell, was 7.2, hemoglobin was 10.0, platelet count of 174, correlation profile was within normal limits, sodium was 148, potassium is 4.1, chloride was 117, BUN was 33, creatinine was 1.32. Troponin was negative 1, LFTs are within normal limits, patient was given IV hydration, patient was started on empiric antibiotics including Levaquin, Zosyn, and vancomycin, on today's exam patient is resting comfortably in bed, does not appear to be in any acute distress, room air pulse ox is 96%, low grade fever 99.2, seem to be in any respiratory distress. Lung sounds are quite diminished, with the crackles at the right base. Patient has some pink tinged sputum on his gown, and the blanket. We're asked to see the patient in evaluation for right lung pneumonia Review of Systems All systems: negative Constitutional: Denies chills, Denies fever Eyes: denies blurred vision, denies pain Ears, nose, mouth and throat: Denies headache, Denies sore throat Cardiovascular: Denies chest pain, Denies shortness of breath Respiratory: Reports cough with sputum, Reports dyspnea, Reports hemoptysis, Reports respiratory infections, Denies cough Gastrointestinal: Denies abdominal pain, Denies diarrhea, Denies nausea, Denies vomiting Musculoskeletal: Denies myalgias Integumentary: Denies pruritus, Denies rash Neurological: Denies numbness, Denies weakness Psychiatric: Denies anxiety, Denies depression Endocrine: Denies fatigue, Denies weight change Past Medical History Past Medical History: No Reported History, COPD, Dementia, Hyperlipidemia, Hypertension, Osteoarthritis (OA) Additional Past Medical History / Comment(s): hypotension History of Any Multi-Drug Resistant Organisms: None Reported Past Surgical History: Hernia Repair Past Anesthesia/Blood Transfusion Reactions: No Reported Reaction Past Psychological History: No Psychological Hx Reported Smoking Status: Former smoker Past Alcohol Use History: None Reported Past Drug Use History: None Reported - Past Family History Father Additional Family Medical History / Comment(s): Patient does not know any history on his parents. Patient has 2 sisters and patient does not know mother's history. Patient has one nephew. Patient does not have any children. Medications and Allergies Home Medications Medication Instructions Recorded Confirmed Type Aspirin [[place] Aspirin EC] 81 mg PO DAILY@1700 11/18/18 01/13/19 History Atorvastatin [Lipitor] 20 mg PO DAILY@1700 11/18/18 01/13/19 History Ergocalciferol [Vitamin D2 50,000 unit PO Q14D 11/18/18 01/13/19 History (DRISDOL)] Acetaminophen [Tylenol 8 Hour] 650 mg PO Q4H PRN 01/13/19 01/13/19 History Bisacodyl [Dulcolax] 10 mg RECTAL DAILY PRN 01/13/19 01/13/19 History LORazepam [Ativan] 1 mg PO BID PRN 01/13/19 01/13/19 History Lisinopril [Zestril] 10 mg PO BID@0800,1700 01/13/19 01/13/19 History Magnesium Hydroxide [Milk of 7,200 mg PO DAILY PRN 01/13/19 01/13/19 History Magnesia Concentrate] Na Phos,M-B/Na Phos,Di-Ba [Fleet 133 ml RECTAL DAILY PRN 01/13/19 01/13/19 History Adult] QUEtiapine [SEROquel] 50 mg PO DAILY@0800 01/13/19 01/13/19 History QUEtiapine [SEROquel] 100 mg PO DAILY@1400 01/13/19 01/13/19 History QUEtiapine [SEROquel] 200 mg PO DAILY@2100 01/13/19 01/13/19 History Allergies Allergy/AdvReac Type Severity Reaction Status Date / Time No Known Allergies Allergy Verified 01/13/19 23:23 Physical Exam Vitals: Vital Signs Temp Pulse Pulse Resp BP BP Pulse Ox 01/14/19 07:00 99.2 F 111 H 16 121/77 96 01/14/19 04:12 97.7 F 67 19 151/81 98 01/14/19 03:09 132/87 01/14/19 00:34 16 01/13/19 23:26 97 F L 67 16 138/65 97 Intake and Output 01/13/19 01/14/19 01/14/19 22:59 06:59 14:59 Other: Voiding Method Diaper Incontinent # Voids 2 Weight 63.049 kg GENERAL EXAM: Alert, pleasant, 78-year-old white male, on room air, minimally verbal, confused, comfortable in no apparent distress. HEAD: Normocephalic/atraumatic. EYES: Normal reaction of pupils, equal size. Conjunctiva pink, sclera white. NOSE: Clear with pink turbinates. THROAT: No erythema or exudates. NECK: No masses, no JVD, no thyroid enlargement, no adenopathy. CHEST: No chest wall deformity. Symmetrical expansion. LUNGS: Equal air entry with crackles at the right base, wheeze, rhonchi or dullness. CVS: Regular rate and rhythm, normal S1 and S2, no gallops, no murmurs, no rubs ABDOMEN: Soft, nontender. No hepatosplenomegaly, normal bowel sounds, no guarding or rigidity. EXTREMITIES: No clubbing, no edema, no cyanosis, 2+ pulses and upper and lower extremities. MUSCULOSKELETAL: Muscle strength and tone normal. SPINE: No scoliosis or deformity SKIN: No rashes CENTRAL NERVOUS SYSTEM: Alert and oriented -3. No focal deficits, tone is normal in all 4 extremities. PSYCHIATRIC: Alert and oriented -3. Appropriate affect. Intact judgment and insight. Results - Laboratory Findings CBC and BMP: 01/14/19 09:42 01/14/19 09:42 PT/INR, D-dimer PT 10.5 sec (9.0-12.0) 01/14/19 00:17 INR 1.0 (<1.2) 01/14/19 00:17 Abnormal lab findings: Abnormal Labs 01/14/19 01/14/19 01/14/19 00:17 00:17 09:42 RBC 3.61 L 3.20 L Hgb 10.0 L 9.2 L Hct 31.0 L 27.4 L Lymphocytes # 0.7 L Sodium 148 H Chloride 117 H BUN 33 H Creatinine 1.32 H Glucose 102 H Albumin 3.2 L 01/14/19 09:42 RBC Hgb Hct Lymphocytes # Sodium 149 H Chloride 118 H BUN 28 H Creatinine Glucose Albumin - Diagnostic Findings Chest x-ray: report reviewed, image reviewed Assessment and Plan Plan: Assessment: #1. Acute pneumonia involving the right lung, possibly of care acquired #2. Hemoptysis #3. Previous episode of pneumonia involving the right lung #4. Advanced dementia #5. Hypertension #6. Hyperlipidemia #7. Remote history of tobacco use #8. COPD the severity of which is unknown at this time #9. Osteoarthritis #10. Patient is a resident of local [facility] #11. Hypernatremia anemia related to poor oral intake #12. Acute kidney injury Plan: Continue current antibiotic coverage, we'll try to obtain a sputum culture, continue nebulized bronchodilators, maintain aspiration precautions, will do a f ollow-up chest x-ray in the next 24-48 hours, continue IV hydration, renal profile is improving, will continue with oral hydration. We'll follow the right sided pneumonia to resolution may consider CT chest there is lack of improvement I performed a history & physical examination of the patient and discussed their management with my nurse practitioner, Natacha Aguirre. I reviewed the nurse practitioner's note and agree with the documented findings and plan of care. Lung sounds are positive for diminished breath sounds. The findings and the impression was discussed with the patient. I attest to the documentation by the nurse practitioner. Time with Patient: Greater than 30
[2019-01-14 15:21] VITALS: BMI 19.3
[2019-01-14] MEDS: DEXTROSE 5%-0.45% NACL 1,000 ML IV SCH ×2 (15:44→20:09)
[2019-01-14] MEDS: ATORVASTATIN 20 MG TAB PO SCH (15:45)
[2019-01-14] MEDS: LORazepam 0.5 MG TAB PO PRN (15:45)
[2019-01-14] MEDS: QUEtiapine 100 MG TAB PO SCH (15:45)
[2019-01-14] MEDS: LISINOPRIL 10 MG TAB PO SCH (15:45)
[2019-01-14] MEDS: ASPIRIN 81 MG PO SCH (15:46)
[2019-01-14] MEDS: IPRATROPIUM-ALBUTEROL 3 ML NEB INHALATION SCH ×3 (16:31→20:07)
[2019-01-14] MEDS: QUEtiapine 200 MG TAB PO SCH (20:08)
[2019-01-14] MEDS: HEPARIN SODIUM,PORCINE 5,000 UNIT/ML 1 ML VIAL SQ SCH (20:08)
[2019-01-15] MEDS: PIPERACILLIN-TAZOBACTAM 3.375 GM in SODIUM CHLORIDE 0.9% 100 ML IVPB SCH ×3 (03:00→19:54)
[2019-01-15] MEDS: DEXTROSE 5%-0.45% NACL 1,000 ML IV SCH ×2 (08:25→17:12)
[2019-01-15] MEDS: LORazepam 0.5 MG TAB PO PRN (08:25)
[2019-01-15] MEDS: HEPARIN SODIUM,PORCINE 5,000 UNIT/ML 1 ML VIAL SQ SCH ×2 (08:25→19:54)
[2019-01-15] MEDS: PANTOPRAZOLE 40 MG TABLET PO SCH (08:25)
[2019-01-15] MEDS: QUEtiapine 50 MG TAB PO SCH (08:27)
[2019-01-15] MEDS: LISINOPRIL 10 MG TAB PO SCH ×2 (08:28→17:12)
[2019-01-15] MEDS: IPRATROPIUM-ALBUTEROL 3 ML NEB INHALATION SCH ×5 (08:56→20:19)
[2019-01-15 09:09] LABS: ALT 22 U/L (21-72); AST 25 U/L (17-59); African American GFR (CKD) >90 (>60 ml/min/1.73 sqM); Albumin 2.8 g/dL (3.5-5.0); Alkaline Phosphatase 51 U/L (38-126); Anion Gap 7 mmol/L; Blood Urea Nitrogen 16 mg/dL (9-20); Calcium 8.4 mg/dL (8.4-10.2); Carbon Dioxide 23 mmol/L (22-30); Chloride 112 mmol/L (98-107); Glucose 126 mg/dL (74-99); Potassium 3.1 mmol/L (3.5-5.1); Sodium 142 mmol/L (137-145); Total Bilirubin 1.2 mg/dL (0.2-1.3); Total Protein 5.9 g/dL (6.3-8.2)
[2019-01-15 09:23] LABS: Basophils % (A) 1 %; Eosinophils # (A) 0.4 k/uL (0-0.7); Eosinophils % (A) 12 %; HCT 25.8 % (39.0-53.0); HGB 8.9 gm/dL (13.0-17.5); Lymphocytes # (A) 0.5 k/uL (1.0-4.8); Lymphocytes % (A) 13 %; MCH 29.3 pg (25.0-35.0); MCHC 34.7 g/dL (31.0-37.0); MCV 84.4 fL (80.0-100.0); Mean Platelet Volume 7.5; Monocytes # (A) 0.2 k/uL (0-1.0); Monocytes % (A) 5 %; Neutrophils # (A) 2.5 k/uL (1.3-7.7); Neutrophils % (A) 67 %; Platelet Count 151 k/uL (150-450); Poikilocytosis Slight; RBC 3.06 m/uL (4.30-5.90); RDW 15.4 % (11.5-15.5); WBC 3.7 k/uL (3.8-10.6)
--- NOTE | 2019-01-15 09:42 | XR ---
EXAMINATION TYPE: XR chest 1V portable DATE OF EXAM: 01/15/2019 HISTORY: Shortness of breath. COMPARISON: 01/14/2019 TECHNIQUE: Single view of the chest is submitted. FINDINGS: Demonstrated are scattered senescent parenchymal change. Right lower lobe consolidative process is again noted. Correlate for underlying pneumonia. Follow-up until resolution advised. The heart is stable. Hilar and mediastinal structures are within normal limits. Degenerative changes are seen of the dorsal spine. IMPRESSION: 1. Right lower lobe consolidative process is again noted. Correlate for underlying pneumonia. Follow -up until resolution advised.
[2019-01-15] MEDS: LEVOFLOXACIN 750 MG TAB PO SCH ×2 (11:06→11:23)
[2019-01-15] MEDS: POTASSIUM CHLORIDE ER 20 MEQ TAB.ER PO STA ×2 (11:06→11:23)
[2019-01-15] MEDS: QUEtiapine 100 MG TAB PO SCH (11:21)
[2019-01-15] MEDS ORDERED: LORazepam 0.5 MG TAB PO PRN (11:21)
[2019-01-15] MEDS ORDERED: POTASSIUM CHLORIDE 10 MEQ in WATER FOR INJECTION 1 100ML.BAG IVPB STA ×2 (11:24→14:20)
--- NOTE | 2019-01-15 11:30 | P.PN ---
Subjective Progress Note Date: 01/15/19 Principal diagnosis: Acute pneumonia involving the right lung possibly healthcare acquired This is 78-year-old white male patient of Dr. Monge, with history of advanced dementia, a resident of [facility] and rehab, who was brought into the emergency department for evaluation of hemoptysis, decreased responsiveness yesterday, poor oral intake and concern of dehydration. Patient was noted to be coughing up some blood in his sputum, currently not on any anticoagulation, or antiplatelet therapy. Patient is minimally verbal, and is not able to provide much history. Past medical history is that of hyperlipidemia, former smoker, previous episode of pneumonia involving the right lung, chronic kidney disease stage II, hypertension. Chest x-ray was completed in the emergency department showing opacity within the right lower lung representing recurrent pneumonia. EKG showed normal sinus rhythm with nonspecific ST and T-wave abnormality. Labs was negative for any leukocytosis, white blood cell, was 7.2, hemoglobin was 10.0, platelet count of 174, correlation profile was within normal limits, sodium was 148, potassium is 4.1, chloride was 117, BUN was 33, creatinine was 1.32. Troponin was negative 1, LFTs are within normal limits, patient was given IV hydration, patient was started on empiric antibiotics including Levaquin, Zosyn, and vancomycin, on today's exam patient is resting comfortably in bed, does not appear to be in any acute distress, room air pulse ox is 96%, low grade fever 99.2, seem to be in any respiratory distress. Lung sounds are quite diminished, with the crackles at the right base. Patient has some pink tinged sputum on his gown, and the blanket. We're asked to see the patient in evaluation for right lung pneumonia On 01/15/2019 patient seen in follow-up on medical surgical floor. He is awake and alert, confused, which is his baseline, he is able to follow simple commands today, as far as taking deep breaths and coughing on request. Limited 1 word answers, did not appear to be in any acute distress, room air pulse ox is 99%, patient is afebrile, hemodynamically stable, sounds reveal diffuse rhonchi, particularly over left lung, she does have a congested nonproductive cough. Today's labs have been reviewed, showing white blood cell count of 3.7, hemoglobin of 8.9, sodium of 142, potassium is 3.1, chloride is 112, the rest of electrolytes and renal profile within normal limits, patient remains on IV hydration, his antibiotic coverage has been streamlined to just Zosyn, Levaquin and vancomycin have been discontinued have been discontinued, blood culture showed no growth. Follow-up chest x-ray today showed right lower lobe consolidative process, stable chest x-ray. Objective - Vital Signs Vital signs: Vital Signs Temp 98.0 F 01/15/19 07:00 Pulse 51 L 01/15/19 09:03 Resp 14 01/15/19 09:03 BP 149/83 01/15/19 07:00 Pulse Ox 99 01/15/19 07:00 Intake & Output 01/14/19 01/15/19 01/15/19 18:59 06:59 18:59 Intake Total 0 0 Balance 0 0 Intake: Oral 0 0 Other: Voiding Method Diaper Diaper Diaper Incontinent Incontinent Incontinent # Voids 1 3 1 - Exam GENERAL EXAM: Alert, pleasant, 78-year-old white male, on room air, minimally verbal, confused, comfortable in no apparent distress. HEAD: Normocephalic/atraumatic. EYES: Normal reaction of pupils, equal size. Conjunctiva pink, sclera white. NOSE: Clear with pink turbinates. THROAT: No erythema or exudates. NECK: No masses, no JVD, no thyroid enlargement, no adenopathy. CHEST: No chest wall deformity. Symmetrical expansion. LUNGS: Equal air entry with crackles at the right base, rhonchi over left lung, no wheeze, or dullness. CVS: Regular rate and rhythm, normal S1 and S2, no gallops, no murmurs, no rubs ABDOMEN: Soft, nontender. No hepatosplenomegaly, normal bowel sounds, no guardi ng or rigidity. EXTREMITIES: No clubbing, no edema, no cyanosis, 2+ pulses and upper and lower extremities. MUSCULOSKELETAL: Muscle strength and tone normal. SPINE: No scoliosis or deformity SKIN: No rashes CENTRAL NERVOUS SYSTEM: Alert and oriented -3. No focal deficits, tone is normal in all 4 extremities. PSYCHIATRIC: Alert and oriented -3. Appropriate affect. Intact judgment and insight. - Labs CBC & Chem 7: 01/15/19 08:05 08/23/19 08:05 Labs: Abnormal Lab Results - Last 24 Hours (Table) 01/15/19 01/15/19 Range/Units 08:05 08:05 WBC 3.7 L (3.8-10.6) k/uL RBC 3.06 L (4.30-5.90) m/uL Hgb 8.9 L (13.0-17.5) gm/dL Hct 25.8 L (39.0-53.0) % Lymphocytes # 0.5 L (1.0-4.8) k/uL Potassium 3.1 L (3.5-5.1) mmol/L Chloride 112 H (98-107) mmol/L Glucose 126 H (74-99) mg/dL Total Protein 5.9 L (6.3-8.2) g/dL Albumin 2.8 L (3.5-5.0) g/dL Microbiology - Last 24 Hours (Table) 01/14/19 03:20 Blood Culture - Preliminary Blood No Growth after 24 hours Assessment and Plan Plan: Assessment: #1. Acute pneumonia involving the right lung, possibly healthcare acquired #2. Hemoptysis #3. Previous episode of pneumonia involving the right lung #4. Advanced dementia #5. Hypertension #6. Hyperlipidemia #7. Remote history of tobacco use #8. COPD the severity of which is unknown at this time #9. Osteoarthritis #10. Patient is a resident of [facility] #11. Hypernatremia anemia related to poor oral intake #12. Acute kidney injury Plan: Continue current antibiotic coverage, will continue with IV Zosyn, Levaquin and vancomycin have been discontinued. Follow-up chest x-ray shows stable findings of right lower lobe pneumonia. Aspiration precautions, speech evaluation. Clinically stable, no fever or chills, no signs of respiratory distress, continue IV hydration. We'll follow. I performed a history & physical examination of the patient and discussed their management with my nurse practitioner, Natacha Aguirre. I reviewed the nurse practitioner's note and agree with the documented findings and plan of care. Lung sounds are positive for diminished breath sounds. The findings and the impression was discussed with the patient. I attest to the documentation by the nurse practitioner. Time with Patient: Less than 30
--- NOTE | 2019-01-15 13:42 | P.PN ---
Subjective Progress Note Date: 01/15/19 This is a 78-year-old male one of Dr. Monge with a previous medical history significant for hypertension and hypertensive cardiovascular disease, hyperlipidemia, remote history of "tobacco use and dependence, vascular dementia, patient was recently hospitalized at [facility] back in 11/09/2018 after he was found to have a right lower lobe pneumonia was treated with IV antibiotic and he had a computed tomography scan of the brain at that time was negative. Was sent to [facility] for therapy patient while he was at [facility] he became less responsive and he was hypernatremic and at that time on I V fluid was started about 48 hours ago when he was supposed to have repeat her blood work yesterday however he continued to have poor oral intake with significant encephalopathy and generalized weakness not able to do much and the patient started to cough up some blood so the decision was made to send him to the ER for evaluation patient did have a chest x-ray that showed right lower lobe infiltrate that was present back in October 2018 patient the possibilities of possible mass, patient was started on IV antibiotic as well as IV fluid and he was admitted to the hospital for pulmonary evaluation. 01/15: Patient has remained afebrile, heart rate is now on the low side running in the 40s and 50s, blood pressure 149/83, pulse ox 99% on room air. Repeat lab work reveals white count of 3.7, hemoglobin 8.9, potassium 3.1, blood sugar 126, creatinine 0.92. Albumin 2.8. CEA 1.1. The patient has been seen by Dr. Gonzalez with plan to continue current antibiotics, bronchodilators, aspiration precautions. Repeat chest x-ray reveals right lower lobe consolidative process again noted. Correlate for underlying pneumonia. Follow-up until resolution and advised. Patient apparently had a rough night and was agitated throughout the night. He was evaluated by speech therapy yesterday and repeat evaluation today. Patient was unable to understand the concept of eating or drinking and speech therapy is recommended that he be essentially nothing by mouth about further attempts to feed can be attempted. Staff have not noted any bloody sputum. The patient did receive a dose of Ativan at half his normal dose this morning and this will be discontinued and only given at nighttime as needed for agitation. Dr. Payne discussed with patient's legal guardian, Shawn Betancourt, and patient is to be full code and family will discuss tomorrow and give the patient's nurse an update. Objective - Vital Signs Vital signs: Vital Signs Temp 98.0 F 01/15/19 07:00 Pulse 50 L 01/15/19 07:00 Resp 15 01/15/19 07:00 BP 149/83 01/15/19 07:00 Pulse Ox 99 01/15/19 07:00 Intake & Output 01/14/19 01/15/19 01/15/19 18:59 06:59 18:59 Intake Total 0 Balance 0 Intake: Oral 0 Other: Voiding Method Diaper Diaper Incontinent Incontinent # Voids 1 3 - Exam Review of Systems ROS unobtainable: due to mental status (Not able to obtain review of systems due to mental status.) - Constitutional General appearance: no distress, thin - EENT Eyes: anicteric sclerae, EOMI, PERRLA, no ptosis, no scleral icterus, normal appearance ENT: hard of hearing, NA/AT, pharyngeal erythema, no thrush Ears: bilateral: normal - Neck Neck: no lymphadenopathy, normal ROM, no rigidity, no stridor, no thyromegaly Carotids: bilateral: upstroke normal Thyroid: bilateral: normal size - Respiratory Respiratory: bilateral: diminished, rhonchi, wheezing, prolonged expiration, negative: dullness, rales, prolonged inspiration - Cardiovascular Rhythm: regular Heart sounds: normal: S1, S2 Abnormal Heart Sounds: systolic murmur, no S3 Gallop, no S4 Gallop, no click - Gastrointestinal General gastrointestinal: normal bowel sounds, soft, no splenomegaly, no tenderness, no umbilical hernia, no ventral hernia - Integumentary Integumentary: decreased turgor - Neurologic Neurologic: CNII-XII intact - Musculoskeletal Musculoskeletal: generalized weakness - Psychiatric Psychiatric: no A&O x's 3, no appropriate affect, no intact judgment & insight. Patient is unable to follow commands. He will briefly opens eyes to verbal stimuli. - Labs CBC & Chem 7: 01/15/19 08:05 01/15/19 08:05 Labs: Abnormal Lab Results - Last 24 Hours (Table) 01/14/19 01/14/19 Range/Units 09:42 09:42 RBC 3.20 L (4.30-5.90) m/uL Hgb 9.2 L (13.0-17.5) gm/dL Hct 27.4 L (39.0-53.0) % Sodium 149 H (137-145) mmol/L Chloride 118 H (98-107) mmol/L BUN 28 H (9-20) mg/dL Microbiology - Last 24 Hours (Table) 01/14/19 03:20 Blood Culture - Preliminary Blood No Growth after 24 hours Assessment and Plan Plan: 1. Right lower lobe pneumonia likely gram-negative pneumonia with possible underlying mass in the right lower lobe. Continue Zosyn only. Vancomycin and Levaquin have been discontinued by pulmonary medicine. Continue DuoNeb 3 mL nebulization 4 times every day, oxygen support, pulmonary consultation appreciated. 2. Metabolic encephalopathy due to hypernatremia with minimal dehydration, improved. 3. Hemoptysis likely related to the right lower lobe pneumonia with the possibility of underlying right lower lobe mass. Pulmonary consultation for further evaluation. 4. Hypertension and hypertensive cardiovascular disease. Continue lisinopril 10 mg orally twice every day. 5. Hyperlipidemia. Continue Lipitor 20 mg orally once every day. 6. Dementia with behavioral disturbances. Continue Seroquel 50 mg in the morning 100 mg at noon and 200 mg at bedtime. 7. Acute blood loss anemia due to hemoptysis and chronic anemia. Further evaluation is in progress. 8. DVT prophylaxis. Continue with heparin 5000 units subcutaneously every 12 hours. 9. GI prophylaxis. Continue patient on Protonix 40 mg orally once every day. Patient is full code. Discussed CODE STATUS with patient's legal guardian and he is to remain full code. Family will discuss on Friday and give the patient's nurse an update. Discharge plan: Return to [facility] most likely on Friday Impression and plan of care have been directed as dictated by the signing physician. Shannan Jain nurse practitioner acting as scribe for signing physician.
[2019-01-15] MEDS: ASPIRIN 81 MG PO SCH (17:28)
[2019-01-15] MEDS: ATORVASTATIN 20 MG TAB PO SCH (17:29)
[2019-01-15] MEDS: QUEtiapine 200 MG TAB PO SCH (19:54)
[2019-01-16] MEDS: PIPERACILLIN-TAZOBACTAM 3.375 GM in SODIUM CHLORIDE 0.9% 100 ML IVPB SCH ×2 (03:29→10:59)
[2019-01-16] MEDS: DEXTROSE 5%-0.45% NACL 1,000 ML IV SCH ×4 (03:39→19:51)
[2019-01-16] MEDS ORDERED: SODIUM CHLORIDE 0.9% 500 ML 500 ML IV ONE ×2 (08:08→11:00)
[2019-01-16 08:26] LABS: Glucose,Whole Blood 229 mg/dL (75-99)
[2019-01-16 08:43] LABS: Hypochromasia Slight; MCH 28.2 pg (25.0-35.0); MCHC 32.7 g/dL (31.0-37.0); MCV 86.3 fL (80.0-100.0); Mean Platelet Volume 8.1; Poikilocytosis Slight; RDW 14.6 % (11.5-15.5); WBC 2.4 k/uL (3.8-10.6)
[2019-01-16 08:54] LABS: African American GFR (CKD) >90 (>60 ml/min/1.73 sqM); Anion Gap 14 mmol/L; Blood Urea Nitrogen 11 mg/dL (9-20); Calcium 6.9 mg/dL (8.4-10.2); Carbon Dioxide 20 mmol/L (22-30); Chloride 114 mmol/L (98-107); Glucose 133 mg/dL (74-99); Sodium 148 mmol/L (137-145)
[2019-01-16 09:00] LABS: Potassium 2.3 mmol/L (3.5-5.1)
[2019-01-16 09:04] LABS: HCT 19.9 % (39.0-53.0)
[2019-01-16 09:05] LABS: HGB 6.5 gm/dL (13.0-17.5)
[2019-01-16] MEDS: IPRATROPIUM-ALBUTEROL 3 ML NEB INHALATION SCH ×3 (09:08→16:06)
[2019-01-16] MEDS ORDERED: SODIUM CHLORIDE 0.9% 1,000 ML IV ONE (09:12)
[2019-01-16] MEDS: PANTOPRAZOLE 40 MG TABLET PO SCH (09:20)
[2019-01-16] MEDS: LISINOPRIL 10 MG TAB PO SCH ×2 (09:21→15:49)
[2019-01-16] MEDS: QUEtiapine 50 MG TAB PO SCH (09:21)
[2019-01-16] MEDS: HYDROCORTISONE SUCCINATE 100 MG/2 ML VIAL IV SCH ×3 (09:58→19:53)
[2019-01-16] MEDS: POTASSIUM CHLORIDE 20 MEQ in WATER FOR INJECTION 1 100ML.BAG IVPB SCH ×4 (09:59→19:53)
[2019-01-16] MEDS ORDERED: POTASSIUM CHLORIDE ER 20 MEQ TAB.ER PO SCH (10:00)
[2019-01-16] MEDS: HEPARIN SODIUM,PORCINE 5,000 UNIT/ML 1 ML VIAL SQ SCH (10:02)
[2019-01-16 12:10] LABS: Platelet Count 94 k/uL (150-450)
[2019-01-16] MEDS ORDERED: RX INFO: IV CONTRAST WAS GIVEN 1 EACH MISC MISCELLANE PRN (13:22)
--- NOTE | 2019-01-16 13:25 | P.PN ---
Subjective Progress Note Date: 01/16/19 Principal diagnosis: Acute right lower lobe pneumonia possibly secondary to aspiration pneumonia or could be community-acquired. This is 78-year-old white male patient of Dr. Monge, with history of advanced dementia, a resident of [facility] re[facility], who was brought into the emergency department for evaluation of hemoptysis, decreased responsiveness yesterday, poor oral intake and concern of dehydration. Patient was noted to be coughing up some blood in his sputum, currently not on any anticoagulation, or antiplatelet therapy. Patient is minimally verbal, and is not able to provide much history. Past medical history is that of hyperlipidemia, former smoker, pr evious episode of pneumonia involving the right lung, chronic kidney disease stage II, hypertension. Chest x-ray was completed in the emergency department showing opacity within the right lower lung representing recurrent pneumonia. EKG showed normal sinus rhythm with nonspecific ST and T-wave abnormality. Labs was negative for any leukocytosis, white blood cell, was 7.2, hemoglobin was 10.0, platelet count of 174, correlation profile was within normal limits, sodium was 148, potassium is 4.1, chloride was 117, BUN was 33, creatinine was 1.32. Troponin was negative 1, LFTs are within normal limits, patient was given IV hydration, patient was started on empiric antibiotics including Leva shiv, Zosyn, and vancomycin, on today's exam patient is resting comfortably in bed, does not appear to be in any acute distress, room air pulse ox is 96%, low grade fever 99.2, seem to be in any respiratory distress. Lung sounds are quite diminished, with the crackles at the right base. Patient has some pink tinged sputum on his gown, and the blanket. We're asked to see the patient in evaluation for right lung pneumonia Patient was reevaluated today on 01/16/2019, patient was noted to be hypotensive this morning, hypothermic, but not in any form of distress. Fluid boluses were given, minimal improvement noted, hence the patient was transferred to the intensive care unit. Chest x-ray clearly shows worsening pneumonia involving her right lower lobe and now left lower lobe. I still believe this is aspiration pneumonia unless proven otherwise. His hemoglobin this morning was noted to be also low at 6.5, WBC count was 2.4. Platelets 94,000. His potassium was low at 2.3. And his sodium was 148. Renal profile is normal. Bicarb is 20. Serum cortisol was normal. In the ICU, patient was given fluid boluses, a unit of packed RBCs was ordered, and a warming blanket was placed on the patient. Solu-Cortef 100 mg IV push every 8 hours was also initiated. His blood pressure seems to be responding but remains basically marginal borderline, not requiring any pressors at this point. Objective - Vital Signs Vital signs: Vital Signs Temp 97.0 F L 01/16/19 13:06 Pulse 58 L 01/16/19 13:06 Resp 15 01/16/19 13:06 BP 77/52 01/16/19 13:06 Pulse Ox 95 01/16/19 13:06 Intake & Output 01/15/19 01/16/19 01/16/19 18:59 06:59 18:59 Intake Total 0 2275 Output Total 380 Balance 0 1895 Weight 63.049 kg Intake: IV 2275 Dextrose 5%-0.45% NaCl 1, 75 000 ml @ 125 mls/hr IV . Q8H NICHO Rx#:[id number] Potassium Chloride 20 meq 200 In Water For Injection 1 100ml.bag @ 50 mls/hr IVPB Q2HR NICHO Rx#: [id number] Sodium Chloride 0.9% 500 2000 ml 500 ml @ 999 mls/hr IV .Q31M ONE Rx#:[id number] Oral 0 Blood Product 0 Rc As-1 Unit 0 [id number] Output: Urine 380 Other: Voiding Method Diaper Incontinent # Voids 1 1 - Exam GENERAL EXAM: Awake but confused 78-year-old in no distress. HEAD: Normocephalic/atraumatic. EYES: Normal reaction of pupils, equal size. Conjunctiva pale, no icterus. NOSE: Clear with pink turbinates. THROAT: No erythema or exudates. NECK: No masses, no JVD, no thyroid enlargement, no adenopathy. CHEST: No chest wall deformity. Symmetrical expansion. LUNGS: Crackles at the bases bilaterally were noted. CVS: Regular rate and rhythm, normal S1 and S2, no gallops, no murmurs, no rubs ABDOMEN: Soft, nontender. No hepatosplenomegaly, normal bowel sounds, no guarding or rigidity. EXTREMITIES: No clubbing, no edema, no cyanosis, 2+ pulses and upper and lower extremities. MUSCULOSKELETAL: Generalized weakness is noted. SPINE: No scoliosis or deformity SKIN: No rashes CENTRAL NERVOUS SYSTEM: No verbalizing much., patient is awake, confused. PSYCHIATRIC: Blunted mood and affect, poor mental status, patient is noted to be confused. And does not verbalize much. - Labs CBC & Chem 7: 01/16/19 06:45 01/16/19 06:45 Labs: Abnormal Lab Results - Last 24 Hours (Table) 01/14/19 01/16/19 01/16/19 Range/Units 00:18 06:45 06:45 WBC 2.4 L (3.8-10.6) k/uL RBC 2.30 L (4.30-5.90) m/uL Hgb 6.5 L* D (13.0-17.5) gm/dL Hct 19.9 L* (39.0-53.0) % Plt Count 94 L (150-450) k/uL Sodium 148 H (137-145) mmol/L Potassium 2.3 L* (3.5-5.1) mmol/L Chloride 114 H (98-107) mmol/L Carbon Dioxide 20 L (22-30) mmol/L Glucose 133 H (74-99) mg/dL POC Glucose (mg/dL) (75-99) mg/dL Calcium 6.9 L (8.4-10.2) mg/dL Crossmatch See Detail 01/16/19 Range/Units 08:15 WBC (3.8-10.6) k/uL RBC (4.30-5.90) m/uL Hgb (13.0-17.5) gm/dL Hct (39.0-53.0) % Plt Count (150-450) k/uL Sodium (137-145) mmol/L Potassium (3.5-5.1) mmol/L Chloride (98-107) mmol/L Carbon Dioxide (22-30) mmol/L Glucose (74-99) mg/dL POC Glucose (mg/dL) 229 H (75-99) mg/dL Calcium (8.4-10.2) mg/dL Crossmatch Microbiology - Last 24 Hours (Table) 01/14/19 03:20 Blood Culture - Preliminary Blood No Growth after 48 hours Assessment and Plan Assessment: Impression: 1 acute pneumonia, felt to be aspiration unless proven otherwise, involving the right lower lobe and left lower lobe. 2 hemoptysis secondary to pneumonia 3 hypotension, multifactorial, secondary to pneumonia, possible sepsis, and worsening anemia with hemoglobin of 6.5. Could be related to his underlying hemoptysis. Possible thromboembolic disease. 4 multiple comorbidities including dementia hyperlipidemia chronic obstructive pulmonary disease, osteoarthritis, hypernatremia secondary to free water deficit, and acute kidney injury. Recommendation: Continue antibiotics coverage, bronchodilators, transfused with 1 unit of packed RBCs, speech therapy to evaluate again, in the meantime keep the patient nothing by mouth, continue to hydrate the patient, may require pressors, we'll continue to follow. Prognosis is definitely poor and guarded. We'll also arrange for a CT angios of the chest, I am a bit concerned about the possibility of thromboembolic disease considering the patient's sedentary lifestyle, and his hemoptysis as well as hypotension. Time with Patient: Less than 30
[2019-01-16] MEDS: QUEtiapine 100 MG TAB PO SCH (14:25)
[2019-01-16] MEDS: ATORVASTATIN 20 MG TAB PO SCH (15:47)
[2019-01-16] MEDS: ASPIRIN 81 MG PO SCH (15:47)
[2019-01-16] MEDS ORDERED: MORPHINE CONC SOLN 10mg/0.5mL ORAL SYRG PO PRN (16:53)
[2019-01-16] MEDS ORDERED: LORazepam ORAL CONC 60 MG/30 ML BOTTLE PO PRN (16:54)
[2019-01-16] MEDS ORDERED: SCOPOLAMINE 1.5MG/72HR PATCH TRANSDERM SCH (18:00)
--- NOTE | 2019-01-16 18:42 | P.PN ---
Subjective Progress Note Date: 01/16/19 This is a 78-year-old male one of Dr. Monge with a previous medical history significant for hypertension and hypertensive cardiovascular disease, hyperlipidemia, remote history of "tobacco use and dependence, vascular dementia, patient was recently hospitalized at [facility] back in 11/09/2018 after he was found to have a right lower lobe pneumonia was treated with IV antibiotic and he had a computed tomography scan of the brain at that time was negative. Was sent to [facility] for therapy patient while he was at [facility] he became less responsive and he was hypernatremic and at that time on IV fluid was started about 48 hours ago when he was supposed to have repeat her blood work yesterday however he continued to have poor oral intake with significant encephalopathy and generalized weakness not able to do much and the patient started to cough up some blood so the decision was made to send him to the ER for evaluation patient did have a chest x-ray that showed right lower lobe infiltrate that was present back in October 2018 patient the possibilities of possible mass, patient was started on IV antibiotic as well as IV fluid and he was admitted to the hospital for pulmonary evaluation. 01/15: Patient has remained afebrile, heart rate is now on the low side running in the 40s and 50s, blood pressure 149/83, pulse ox 99% on room air. Repeat lab work reveals white count of 3.7, hemoglobin 8.9, potassium 3.1, blood sugar 126, creatinine 0.92. Albumin 2.8. CEA 1.1. The patient has been seen by Dr. Gonzalez with plan to continue current antibiotics, bronchodilators, aspiration precautions. Repeat chest x-ray reveals right lower lobe consolidative process again noted. Correlate for underlying pneumonia. Follow-up until resolution and advised. Patient apparently had a rough night and was agitated throughout the night. He was evaluated by speech therapy yesterday and repeat evaluation today. Patient was unable to understand the concept of eating or drinking and speech therapy is recommended that he be essentially nothing by mouth about further attempts to feed can be attempted. Staff have not noted any bloody sputum. The patient did receive a dose of Ativan at half his normal dose this morning and this will be discontinued and only given at nighttime as needed for agitation. Dr. Payne discussed with patient's legal guardian, Shawn Betancourt, and patient is to be full code and family will discuss tomorrow and give the patient's nurse an update. 01/16: Patient has had hyponatremia overnight, numbness has been having a hard time getting an oral temperature, when it was taken, it was 88, thereafterand a team critical care response was called secondary to hypotension, patient was subsequently transferred to ICU for critical care treatments, IV hydrocortisone was started, along with fluid boluses, patient has had dementia in is nonverbal,IV antibiotics were still maintain for acute pneumonia involving right lung, he was given 1 unit of packed red blood cells, hemoglobin was 6.5, creatinine was 0.67, lowest blood pressurewas 75 systolic,with the updates given to the family members around 2 PM today, they want their family member to be in hospice, comfort care measures only Objective - Vital Signs Vital signs: Vital Signs Temp 97.0 F L 01/16/19 14:30 Pulse 87 01/16/19 16:19 Resp 16 01/16/19 14:30 BP 98/57 01/16/19 14:30 Pulse Ox 94 L 01/16/19 14:30 Intake & Output 01/15/19 01/16/19 01/16/19 18:59 06:59 18:59 Intake Total 0 2760 Output Total 955 Balance 0 1805 Weight 63.049 kg Intake: IV 2450 Dextrose 5%-0.45% NaCl 1, 200 000 ml @ 125 mls/hr IV . Q8H NICHO Rx#:[id number] Potassium Chloride 20 meq 250 In Water For Injection 1 100ml.bag @ 50 mls/hr IVPB Q2HR NICHO Rx#: [id number] Sodium Chloride 0.9% 500 2000 ml 500 ml @ 999 mls/hr IV .Q31M ONE Rx#:[id number] Oral 0 Blood Product 310 Rc As-1 Unit 310 [id number] Output: Urine 955 Other: Voiding Method Diaper Indwelling Catheter Incontinent # Voids 1 1 1 - Constitutional General appearance: Present: average body habitus, disheveled, mild distress - EENT Eyes: Present: anicteric sclerae, EOMI, PERRLA, poor dentition, normal appearance - Neck Neck: Present: normal ROM - Respiratory Respiratory: bilateral: CTA, negative: diminished, dullness, rales - Cardiovascular Rhythm: regular Heart sounds: normal: S1 Abnormal Heart Sounds: Present: systolic murmur. Absent: diastolic murmur, rub, S3 Gallop, S4 Gallop, click, other - Gastrointestinal General gastrointestinal: Present: normal bowel sounds, scaphoid - Integumentary Integumentary: Present: decreased turgor, normal - Neurologic Neurologic: Present: CNII-XII intact - Psychiatric Psychiatric Comment(s): obtunded, can open eyes on lound conversation otherwise drifts off to sleep - Allied health notes Allied health notes reviewed: nursing - Labs CBC & Chem 7: 01/16/19 06:45 01/16/19 06:45 Labs: Abnormal Lab Results - Last 24 Hours (Table) 01/14/19 01/16/19 01/16/19 Range/Units 00:18 06:45 06:45 WBC 2.4 L (3.8-10.6) k/uL RBC 2.30 L (4.30-5.90) m/uL Hgb 6.5 L* D (13.0-17.5) gm/dL Hct 19.9 L* (39.0-53.0) % Plt Count 94 L (150-450) k/uL Sodium 148 H (137-145) mmol/L Potassium 2.3 L* (3.5-5.1) mmol/L Chloride 114 H (98-107) mmol/L Carbon Dioxide 20 L (22-30) mmol/L Glucose 133 H (74-99) mg/dL POC Glucose (mg/dL) (75-99) mg/dL Calcium 6.9 L (8.4-10.2) mg/dL Crossmatch See Detail 01/16/19 Range/Units 08:15 WBC (3.8-10.6) k/uL RBC (4.30-5.90) m/uL Hgb (13.0-17.5) gm/dL Hct (39.0-53.0) % Plt Count (150-450) k/uL Sodium (137-145) mmol/L Potassium (3.5-5.1) mmol/L Chloride (98-107) mmol/L Carbon Dioxide (22-30) mmol/L Glucose (74-99) mg/dL POC Glucose (mg/dL) 229 H (75-99) mg/dL Calcium (8.4-10.2) mg/dL Crossmatch Microbiology - Last 24 Hours (Table) 01/14/19 03:20 Blood Culture - Preliminary Blood No Growth after 48 hours Assessment and Plan Plan: 1. Sepsis with SRIS, profound hypotension and profound hypothermia, patient was made comfort care measures, patient received IV boluses, 1 unit of packed red blood cells, unable to support any nutrition secondary to poor feeding, and suspected aspirated events, family members declined any further intervention, and was returned to the hospice program at [facility]] 2 Right lower lobe pneumonia likely gram-negative pneumonia with possible underlying mass in the right lower lobe. discontinue IV antibiotics , oxygen support, pulmonary consultation appreciated. 3 Metabolic encephalopathy due to hypernatremia with minimal dehydration, improved. 4 Hemoptysis likely related to the right lower lobe pneumonia with the possibility of underlying right lower lobe mass. Pulmonary consultation for further evaluation. 5 Hypertension and hypertensive cardiovascular disease. Continue lisinopril 10 mg orally twice every day.discontinued 6. Hyperlipidemia. Continue Lipitor 20 mg orally once every day.Discontinued secondary to hospice 7 Dementia with behavioral disturbances. Continue Seroquel 50 mg in the morning 100 mg at noon and 200 mg at bedtime.discontinued secondary to hospice 8. Acute blood loss anemia due to hemoptysis and chronic anemia. Further evaluation is in progress. 9 DVT prophylaxis. Continue with heparin 5000 units subcutaneously every 12 hours. 10 GI prophylaxis. Continue patient on Protonix 40 mg orally once every day. Patient is full code. Discussed CODE STATUS with patient's legal guardian and he is to remain full code. Family will discuss on Friday and give the patient's nurse an update. Discharge plan: Return to [facility] hospice or comfort care measures
[2019-01-16] MEDS ORDERED: MORPHINE SULFATE 4 MG/ML SYRINGE IV PRN (19:48)
[2019-01-16] MEDS ORDERED: HYDROmorphone 1 MG/ML 1 ML SYRINGE IVP PRN (19:48)
[2019-01-16] MEDS ORDERED: ONDANSETRON 4 MG/2 ML VIAL IVP PRN (19:48)
[2019-01-16] MEDS: LORazepam 2 MG/ML INJ IV PRN (22:27)
--- NOTE | 2019-01-17 10:21 | P.PN ---
Subjective Progress Note Date: 01/17/19 Principal diagnosis: Acute right lower lobe pneumonia possibly secondary to aspiration pneumonia or could be community-acquired. This is 78-year-old white male patient of Dr. Monge, with history of advanced dementia, a resident of [facility] re[facility], who was brought into the emergency department for evaluation of hemoptysis, decreased responsiveness yesterday, poor oral intake and concern of dehydration. Patient was noted to be coughing up some blood in his sputum, currently not on any anticoagulation, or antiplatelet therapy. Patient is minimally verbal, and is not able to provide much history. Past medical history is that of hyperlipidemia, former smoker, pr evious episode of pneumonia involving the right lung, chronic kidney disease stage II, hypertension. Chest x-ray was completed in the emergency department showing opacity within the right lower lung representing recurrent pneumonia. EKG showed normal sinus rhythm with nonspecific ST and T-wave abnormality. Labs was negative for any leukocytosis, white blood cell, was 7.2, hemoglobin was 10.0, platelet count of 174, correlation profile was within normal limits, sodium was 148, potassium is 4.1, chloride was 117, BUN was 33, creatinine was 1.32. Troponin was negative 1, LFTs are within normal limits, patient was given IV hydration, patient was started on empiric antibiotics including Leva shiv, Zosyn, and vancomycin, on today's exam patient is resting comfortably in bed, does not appear to be in any acute distress, room air pulse ox is 96%, low grade fever 99.2, seem to be in any respiratory distress. Lung sounds are quite diminished, with the crackles at the right base. Patient has some pink tinged sputum on his gown, and the blanket. We're asked to see the patient in evaluation for right lung pneumonia Patient was reevaluated today on 01/16/2019, patient was noted to be hypotensive this morning, hypothermic, but not in any form of distress. Fluid boluses were given, minimal improvement noted, hence the patient was transferred to the intensive care unit. Chest x-ray clearly shows worsening pneumonia involving her right lower lobe and now left lower lobe. I still believe this is aspiration pneumonia unless proven otherwise. His hemoglobin this morning was noted to be also low at 6.5, WBC count was 2.4. Platelets 94,000. His potassium was low at 2.3. And his sodium was 148. Renal profile is normal. Bicarb is 20. Serum cortisol was normal. In the ICU, patient was given fluid boluses, a unit of packed RBCs was ordered, and a warming blanket was placed on the patient. Solu-Cortef 100 mg IV push every 8 hours was also initiated. His blood pressure seems to be responding but remains basically marginal borderline, not requiring any pressors at this point. Reevaluated today on 01/17/2019, patient remains in the ICU, I was updated on his condition last night, and I recommended a CT angiogram of the chest, however before the CT angiogram was done, apparently family/legal guardian requested that the patient is made comfort care measures. Patient is now on comfort care, he seems to be comfortable, in no distress, and his clinical informaticist is at bedside. Objective - Vital Signs Vital signs: Vital Signs Temp 97.0 F L 01/16/19 14:30 Pulse 87 01/16/19 16:19 Resp 16 01/16/19 14:30 BP 98/57 01/16/19 14:30 Pulse Ox 94 L 01/16/19 14:30 Intake & Output 01/16/19 01/17/19 01/17/19 18:59 06:59 18:59 Intake Total 2760 Output Total 955 Balance 1805 Intake: IV 2450 Dextrose 5%-0.45% NaCl 1, 200 000 ml @ 125 mls/hr IV . Q8H NICHO Rx#:[id number] Potassium Chloride 20 meq 250 In Water For Injection 1 100ml.bag @ 50 mls/hr IVPB Q2HR NICHO Rx#: [id number] Sodium Chloride 0.9% 500 2000 ml 500 ml @ 999 mls/hr IV .Q31M ONE Rx#:[id number] Blood Product 310 Rc As-1 Unit 310 [id number] Output: Urine 955 Other: Voiding Method Indwelling Catheter # Voids 1 1 - Exam GENERAL EXAM: Awake but confused 78-year-old comfortable, asymptomatic, in no distress. HEAD: Normocephalic/atraumatic. EYES: Normal reaction of pupils, equal size. Conjunctiva pale, no icterus. NOSE: Clear with pink turbinates. THROAT: No erythema or exudates. NECK: No masses, no JVD, no thyroid enlargement, no adenopathy. CHEST: No chest wall deformity. Symmetrical expansion. LUNGS: Crackles at the bases bilaterally were noted. CVS: Regular rate and rhythm, normal S1 and S2, no gallops, no murmurs, no rubs ABDOMEN: Soft, nontender. No hepatosplenomegaly, normal bowel sounds, no guarding or rigidity. EXTREMITIES: No clubbing, no edema, no cyanosis, 2+ pulses and upper and lower extremities. MUSCULOSKELETAL: Generalized weakness is noted. SPINE: No scoliosis or deformity SKIN: No rashes CENTRAL NERVOUS SYSTEM: No verbalizing much., patient is awake, confused. PSYCHIATRIC: Blunted mood and affect, poor mental status, patient is noted to be confused. And does not verbalize much. - Labs CBC & Chem 7: 01/16/19 06:45 01/16/19 06:45 Labs: Abnormal Lab Results - Last 24 Hours (Table) 01/14/19 01/16/19 Range/Units 00:18 06:45 Hct 19.9 L* (39.0-53.0) % Plt Count 94 L (150-450) k/uL Crossmatch See Detail Microbiology - Last 24 Hours (Table) 01/14/19 03:20 Blood Culture - Preliminary Blood No Growth after 72 hours Assessment and Plan Assessment: Impression: 1 acute pneumonia, felt to be aspiration unless proven otherwise, involving the right lower lobe and left lower lobe. 2 hemoptysis secondary to pneumonia 3 hypotension, multifactorial, secondary to pneumonia, possible sepsis, and worsening anemia with hemoglobin of 6.5. Could be related to his underlying hemoptysis. Possible thromboembolic disease. 4 multiple comorbidities including dementia hyperlipidemia chronic obstructive pulmonary disease, osteoarthritis, hypernatremia secondary to free water deficit, and acute kidney injury. Recommendation: Agree with comfort care measures, we will sign off, and see the patient on when necessary basis. Transfer patient out of the ICU to a regular medical floor. Time with Patient: Less than 30
--- NOTE | 2019-01-17 15:11 | P.PN ---
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 back in 11/09/2018 after he was found to have a right lower lobe pneumonia was treated with IV antibiotic and he had a computed tomography scan of the brain at that time was negative. Was sent to [facility] for therapy patient while he was at [facility] he became less responsive and he was hypernatremic and at that time on IV fluid was started about 48 hours ago when he was supposed to have repeat her blood work yesterday however he continued to have poor oral intake with significant encephalopathy and generalized weakness not able to do much and the patient started to cough up some blood so the decision was made to send him to the ER for evaluation patient did have a chest x-ray that showed right lower lobe infiltrate that was present back in October 2018 patient the possibilities of possible mass, patient was started on IV antibiotic as well as IV fluid and he was admitted to the hospital for pulmonary evaluation. 01/15: Patient has remained afebrile, heart rate is now on the low side running in the 40s and 50s, blood pressure 149/83, pulse ox 99% on room air. Repeat lab work reveals white count of 3.7, hemoglobin 8.9, potassium 3.1, blood sugar 126, creatinine 0.92. Albumin 2.8. CEA 1.1. The patient has been seen by Dr. Gonzalez with plan to continue current antibiotics, bronchodilators, aspiration precautions. Repeat chest x-ray reveals right lower lobe consolidative process again noted. Correlate for underlying pneumonia. Follow-up until resolution and advised. Patient apparently had a rough night and was agitated throughout the night. He was evaluated by speech therapy yesterday and repeat evaluation today. Patient was unable to understand the concept of eating or drinking and speech therapy is recommended that he be essentially nothing by mouth about further attempts to feed can be attempted. Staff have not noted any bloody sputum. The patient did receive a dose of Ativan at half his normal dose this morning and this will be discontinued and only given at nighttime as needed for agitation. Dr. Payne discussed with patient's legal guardian, Shawn Betancourt, and patient is to be full code and family will discuss tomorrow and give the patient's nurse an update. 01/16: Patient has had hyponatremia overnight, numbness has been having a hard time getting an oral temperature, when it was taken, it was 88, thereafterand a team critical care response was called secondary to hypotension, patient was subsequently transferred to ICU for critical care treatments, IV hydrocortisone was started, along with fluid boluses, patient has had dementia in is nonverbal,IV antibiotics were still maintain for acute pneumonia involving right lung, he was given 1 unit of packed red blood cells, hemoglobin was 6.5, creatinine was 0.67, lowest blood pressurewas 75 systolic,with the updates given to the family members around 2 PM today, they want their family member to be in hospice, comfort care measures only 01/17, patient currently is in hospice program, and is in ICU overflow, no ch anges made to his treatment today patient to be made comfortable on morphine and scopolamine patch oxygen Zofran Ativan when necessary Villagran catheter and oxygen are in place no family at bedside today Objective - Vital Signs Vital signs: Vital Signs Temp 97.0 F L 01/16/19 14:30 Pulse 87 01/16/19 16:19 Resp 16 01/16/19 14:30 BP 98/57 01/16/19 14:30 Pulse Ox 94 L 01/16/19 14:30 Intake & Output 01/16/19 01/17/19 01/17/19 18:59 06:59 18:59 Intake Total 2760 Output Total 955 Balance 1805 Intake: IV 2450 Dextrose 5%-0.45% NaCl 1, 200 000 ml @ 125 mls/hr IV . Q8H NICHO Rx#:[id number] Potassium Chloride 20 meq 250 In Water For Injection 1 100ml.bag @ 50 mls/hr IVPB Q2HR NICHO Rx#: [id number] Sodium Chloride 0.9% 500 2000 ml 500 ml @ 999 mls/hr IV .Q31M ONE Rx#:[id number] Blood Product 310 Rc As-1 Unit 310 [id number] Output: Urine 955 Other: Voiding Method Indwelling Catheter Indwelling Catheter # Voids 1 1 - Exam Obtunded minimally minimally responsive no verbal, medication - Respiratory Respiratory: bilateral: CTA, diminished - Cardiovascular Rhythm: regular Heart sounds: normal: S1, S2 - Gastrointestinal General gastrointestinal: Present: soft - Labs CBC & Chem 7: 01/16/19 06:45 01/16/19 06:45 Labs: Microbiology - Last 24 Hours (Table) 01/16/19 09:03 Blood Culture - Preliminary Blood No Growth after 24 hours 01/14/19 03:20 Blood Culture - Preliminary Blood No Growth after 72 hours Assessment and Plan Plan: 1. Sepsis with SRIS, profound hypotension and profound hypothermia, patient was made comfort care measures, patient received IV boluses, 1 unit of packed red blood cells, unable to support any nutrition secondary to poor feeding, and suspected aspirated events, family members declined any further intervention, an d was returned to the hospice program at [facility]] 2 Right lower lobe pneumonia likely gram-negative pneumonia with possible underlying mass in the right lower lobe. discontinue IV antibiotics , oxygen support, pulmonary consultation appreciated. 3 Metabolic encephalopathy due to hypernatremia with minimal dehydration, improved. 4 Hemoptysis likely related to the right lower lobe pneumonia with the possibility of underlying right lower lobe mass. Pulmonary consultation for further evaluation. 5 Hypertension and hypertensive cardiovascular disease. Continue lisinopril 10 mg orally twice every day.discontinued 6. Hyperlipidemia. Continue Lipitor 20 mg orally once every day.Discontinued secondary to hospice 7 Dementia with behavioral disturbances. Continue Seroquel 50 mg in the morning 100 mg at noon and 200 mg at bedtime.discontinued secondary to hospice 8. Acute blood loss anemia due to hemoptysis and chronic anemia. Further evaluation is in progress. 9 DVT prophylaxis. Continue with heparin 5000 units subcutaneously every 12 hours. 10 GI prophylaxis. Continue patient on Protonix 40 mg orally once every day. Patient is full code. Discussed CODE STATUS with patient's legal guardian and he is to remain full code. Family will discuss on Friday and give the patient's nurse an update. Discharge plan: Return to [facility] hospice or comfort care measures
[2019-01-17] MEDS: LORazepam 2 MG/ML INJ IV PRN (20:38)
[2019-01-17 20:52] VITALS: TEMP 97.2
[2019-01-18] MEDS: LORazepam 2 MG/ML INJ IV PRN ×2 (08:54→19:55)
[2019-01-18 11:00] VITALS: BP 142/90; PULSE 60; RESP 16
--- NOTE | 2019-01-18 13:08 | P.DS ---
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 Was sent to [facility] for therapy patient while he was at [facility] he became less responsive and he was hypernatremic and at that time on IV fluid was started about 48 hours ago when he was supposed to have repeat her blood work yesterday however he continued to have poor oral intake with significant encephalopathy and generalized weakness not able to do much and the patient started to cough up some blood so the decision was made to send him to the ER for evaluation patient did have a chest x-ray that showed right lower lobe infiltrate that was present back in October 2018 patient the possibilities of possible mass, patient was started on IV antibiotic as well as IV fluid and he was admitted to the hospital for pulmonary evaluation. 01/15: Patient has remained afebrile, heart rate is now on the low side running in the 40s and 50s, blood pressure 149/83, pulse ox 99% on room air. Repeat lab work reveals white count of 3.7, hemoglobin 8.9, potassium 3.1, blood sugar 126, creatinine 0.92. Albumin 2.8. CEA 1.1. The patient has been seen by Dr. Gonzalez with plan to continue current antibiotics, bronchodilators, aspiration precautions. Repeat chest x-ray reveals right lower lobe consolidative process again noted. Correlate for underlying pneumonia. Follow-up until resolution and advised. Patient apparently had a rough night and was agitated throughout the night. He was evaluated by speech therapy yesterday and repeat evaluation today. Patient was unable to understand the concept of eating or drinking and speech therapy is recommended that he be essentially nothing by mouth about further attempts to feed can be attempted. Staff have not noted any bloody sputum. The patient did receive a dose of Ativan at half his normal dose this morning and this will be discontinued and only given at nighttime as needed for agitation. Dr. Payne discussed with patient's legal guardian, Shawn Betancourt, and patient is to be full code and family will discuss tomorrow and give the patient's nurse an update. 01/16: Patient has had hyponatremia overnight, numbness has been having a hard time getting an oral temperature, when it was taken, it was 88, thereafterand a team critical care response was called secondary to hypotension, patient was subsequently transferred to ICU for critical care treatments, IV hydrocortisone was started, along with fluid boluses, patient has had dementia in is nonverbal,IV antibiotics were still maintain for acute pneumonia involving right lung, he was given 1 unit of packed red blood cells, hemoglobin was 6.5, cr eatinine was 0.67, lowest blood pressurewas 75 systolic,with the updates given to the family members around 2 PM today, they want their family member to be in hospice, comfort care measures only 01/17, patient currently is in hospice program, and is in ICU overflow, no changes made to his treatment today patient to be made comfortable on morphine and scopolamine patch oxygen Zofran Ativan when necessary Villagran catheter and oxygen are in place no family at bedside today 01/18: Over the weekend, it was determined the patient did not meet criteria for inpatient hospice. Patient is scheduled for discharge to [facility] today and will be under hospice care. Hospice medications have been addressed for discharge. Patient will be discharged back to [facility] once all arrangements are completed. Discharge diagnoses: 1. Sepsis with profound hypotension and profound hypothermia 2. Right lower lobe pneumonia likely gram-negative pneumonia with possible underlying mass in the right lower lobe. 3. Metabolic encephalopathy due to hypernatremia with minimal dehydration. 4. Hemoptysis likely related to the right lower lobe pneumonia with the possibility of underlying right lower lobe mass. 5. Hypertension and hypertensive cardiovascular disease. 6. Hyperlipidemia. 7. Dementia with behavioral disturbances. 8. Acute blood loss anemia due to hemoptysis and chronic anemia. Discharge plan: Return to [facility] hospice or comfort care measures Impression and plan of care have been directed as dictated by the signing physician. Shannan Jain nurse practitioner acting as scribe for signing physician. Patient Condition at Discharge: Stable Plan - Discharge Summary New Discharge Prescriptions: New LORazepam ORAL CONC [Ativan Intensol] 2 mg PO Q4HR PRN #30 ml PRN Reason: Anxiety MORPHINE ORAL JEANETTE CONC 20mg/mL [Roxanol Oral Soln Conc 20MG/ML] 5 mg PO Q4H PRN #30 ml PRN Reason: Pain Scopolamine 1.5MG/72Hr Patch [TransDerm Scop] 1 patch TRANSDERM Q72H patch Acetaminophen Tab [Tylenol] 650 mg PO Q4H PRN tab PRN Reason: GENERAL DISCOMFORT Discontinued Ergocalciferol [Vitamin D2 (DRISDOL)] 50,000 unit PO Q14D Atorvastatin [Lipitor] 20 mg PO DAILY@1700 Aspirin [[place] Aspirin EC] 81 mg PO DAILY@1700 Na Phos,M-B/Na Phos,Di-Ba [Fleet Adult] 133 ml RECTAL DAILY PRN PRN Reason: Constipation Bisacodyl [Dulcolax] 10 mg RECTAL DAILY PRN PRN Reason: Constipation LORazepam [Ativan] 1 mg PO BID PRN PRN Reason: Anxiety Acetaminophen [Tylenol 8 Hour] 650 mg PO Q4H PRN PRN Reason: GENERAL DISCOMFORT QUEtiapine [SEROquel] 200 mg PO DAILY@2100 QUEtiapine [SEROquel] 50 mg PO DAILY@0800 Lisinopril [Zestril] 10 mg PO BID@0800,1700 QUEtiapine [SEROquel] 100 mg PO DAILY@1400 Magnesium Hydroxide [Milk of Magnesia Concentrate] 7,200 mg PO DAILY PRN PRN Reason: Constipation Discharge Medication List Acetaminophen Tab [Tylenol] 650 mg PO Q4H PRN tab 01/18/19 [Rx] LORazepam ORAL CONC [Ativan Intensol] 2 mg PO Q4HR PRN #30 ml 01/18/19 [Rx] MORPHINE ORAL JEANETTE CONC 20mg/mL [Roxanol Oral Soln Conc 20MG/ML] 5 mg PO Q4H PRN #30 ml 01/18/19 [Rx] Scopolamine 1.5MG/72Hr Patch [TransDerm Scop] 1 patch TRANSDERM Q72H patch 01/18/19 [Rx] Follow up Appointment(s)/Referral(s): Eduardo Monge MD [Primary Care Provider] - 1-2 days
--- NOTE | 2019-01-19 08:58 | P.PN ---
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 Was sent to [facility] for therapy patient while he was at [facility] he became less responsive and he was hypernatremic and at that time on I V fluid was started about 48 hours ago when he was supposed to have repeat her blood work yesterday however he continued to have poor oral intake with significant encephalopathy and generalized weakness not able to do much and the patient started to cough up some blood so the decision was made to send him to the ER for evaluation patient did have a chest x-ray that showed right lower lobe infiltrate that was present back in October 2018 patient the possibilities of possible mass, patient was started on IV antibiotic as well as IV fluid and he was admitted to the hospital for pulmonary evaluation. 01/15: Patient has remained afebrile, heart rate is now on the low side running in the 40s and 50s, blood pressure 149/83, pulse ox 99% on room air. Repeat lab work reveals white count of 3.7, hemoglobin 8.9, potassium 3.1, blood sugar 126, creatinine 0.92. Albumin 2.8. CEA 1.1. The patient has been seen by Dr. Gonzalez with plan to continue current antibiotics, bronchodilators, aspiration precautions. Repeat chest x-ray reveals right lower lobe consolidative process again noted. Correlate for underlying pneumonia. Follow-up until resolution and advised. Patient apparently had a rough night and was agitated throughout the night. He was evaluated by speech therapy yesterday and repeat evaluation today. Patient was unable to understand the concept of eating or drinking and speech therapy is recommended that he be essentially nothing by mouth about further attempts to feed can be attempted. Staff have not noted any bloody sputum. The patient did receive a dose of Ativan at half his normal dose this morning and this will be discontinued and only given at nighttime as needed for agitation. Dr. Payne discussed with patient's legal guardian, Shawn Betancourt, and patient is to be full code and family will discuss tomorrow and give the patient's nurse an update. 01/16: Patient has had hyponatremia overnight, numbness has been having a hard time getting an oral temperature, when it was taken, it was 88, thereafterand a team critical care response was called secondary to hypotension, patient was subsequently transferred to ICU for critical care treatments, IV hydrocortisone was started, along with fluid boluses, patient has had dementia in is nonverbal,IV antibiotics were still maintain for acute pneumonia involving right lung, he was given 1 unit of packed red blood cells, hemoglobin was 6.5, creatinine was 0.67, lowest blood pressurewas 75 systolic,with the updates given to the family members around 2 PM today, they want their family member to be in hospice, comfort care measures only 01/17, patient currently is in hospice program, and is in ICU overflow, no ra nges made to his treatment today patient to be made comfortable on morphine and scopolamine patch oxygen Zofran Ativan when necessary Villagran catheter and oxygen are in place no family at bedside today 01/18: Over the weekend, it was determined the patient did not meet criteria for inpatient hospice. Patient is scheduled for discharge to [facility] today and will be under hospice care. Hospice medications have been addressed for discharge. Patient will be discharged back to [facility] once all arrangements are completed. Objective - Vital Signs Vital signs: Vital Signs Temp 97.2 F L 01/17/19 20:30 Pulse 60 01/18/19 09:00 Resp 16 01/18/19 23:56 BP 142/90 01/18/19 09:00 Pulse Ox 92 L 01/16/19 18:00 Intake & Output 01/18/19 01/19/19 01/19/19 18:59 06:59 18:59 Output Total 50 Balance -50 Weight 63.049 kg Output: Urine 50 Other: Voiding Method Indwelling Catheter Indwelling Catheter - Exam Review of Systems ROS unobtainable: due to mental status (Not able to obtain review of systems due to mental status.) - Constitutional General appearance: no distress, thin - EENT Eyes: anicteric sclerae, EOMI, PERRLA, no ptosis, no scleral icterus, normal appearance ENT: hard of hearing, NA/AT, pharyngeal erythema, no thrush Ears: bilateral: normal - Neck Neck: no lymphadenopathy, normal ROM, no rigidity, no stridor, no thyromegaly Carotids: bilateral: upstroke normal Thyroid: bilateral: normal size - Respiratory Respiratory: bilateral: diminished, rhonchi, wheezing, prolonged expiration, negative: dullness, rales, prolonged inspiration - Cardiovascular Rhythm: regular Heart sounds: normal: S1, S2 Abnormal Heart Sounds: systolic murmur, no S3 Gallop, no S4 Gallop, no click - Gastrointestinal General gastrointestinal: normal bowel sounds, soft, no splenomegaly, no tenderness, no umbilical hernia, no ventral hernia - Integumentary Integumentary: decreased turgor - Musculoskeletal Musculoskeletal: generalized weakness - Psychiatric Psychiatric: no A&O x's 3, no appropriate affect, no intact judgment & insight. Patient is unable to follow commands. He will briefly opens eyes to verbal stimuli. - Labs CBC & Chem 7: 01/16/19 06:45 01/16/19 06:45 Labs: Microbiology - Last 24 Hours (Table) 01/14/19 03:20 Blood Culture - Preliminary Blood No Growth after 120 hours 01/16/19 09:03 Blood Culture - Preliminary Blood No Growth after 48 hours Assessment and Plan Plan: 1. Right lower lobe pneumonia likely gram-negative pneumonia with possible underlying mass in the right lower lobe. Patient placed on comfort care. Aggressive treatment discontinued. 2. Metabolic encephalopathy due to hypernatremia with minimal dehydration, improved. 3. Hemoptysis likely related to the right lower lobe pneumonia with the possibility of underlying right lower lobe mass. Pulmonary consultation for further evaluation. 4. Hypertension and hypertensive cardiovascular disease. 5. Hyperlipidemia. 6. Dementia with behavioral disturbances. 7. Acute blood loss anemia due to hemoptysis and chronic anemia. 8. DVT prophylaxis. 9. GI prophylaxis. CODE STATUS: No code Discharge plan: Return to [facility] once all arrangements are completed. Impression and plan of care have been directed as dictated by the signing physician. Shannan Jain nurse practitioner acting as scribe for signing physician.
== END 2019-01-19 15:35 | DRG 871 ==
LOC: EC 23:11 → EEVIPCON 01-14 03:09 → 4SSUR 01-14 03:09 → 2SICU 01-16 08:59 → 3NMEDONC 01-18 13:38
PROVIDERS: ADMIT Internal Medicine; ATTEND Internal Medicine
DX: A41.50 Gram-negative sepsis, unspecified (principal); J15.6 Pneumonia due to other Gram-negative bacteria; G93.41 Metabolic encephalopathy; D62 Acute posthemorrhagic anemia; E87.0 Hyperosmolality and hypernatremia; F01.51 Vascular dementia, unspecified severity, with behavioral disturbance; J44.0 Chronic obstructive pulmonary disease with (acute) lower respiratory infection; N17.9 Acute kidney failure, unspecified; R04.2 Hemoptysis; Z87.891 Personal history of nicotine dependence; Z66 Do not resuscitate; Z51.5 Encounter for palliative care; E78.5 Hyperlipidemia, unspecified; E86.0 Dehydration; I13.10 Hypertensive heart and chronic kidney disease without heart failure, with stage 1 through stage 4 chronic kidney disease, or unspecified chronic kidney disease; M19.90 Unspecified osteoarthritis, unspecified site; N18.2 Chronic kidney disease, stage 2 (mild); Y95 Nosocomial condition; Z79.82 Long term (current) use of aspirin; Z79.899 Other long term (current) drug therapy; Z87.01 Personal history of pneumonia (recurrent); T68.XXXA Hypothermia, initial encounter; R91.8 Other nonspecific abnormal finding of lung field
CPT/HCPCS: 36415; 71045; 71046; 80048; 80053; 82378; 82533; 83605; 83735; 84443; 84484; 85025; 85027; 85610; 85730; 86850; 86900; 86901; 86920; 87040; 93005; 94640; 96360; 96361; 99285